=== PATIENT | male | born 1965 | race Caucasian/White ===

== ENCOUNTER → 2020-09-03 14:56 | Outpatient (BNVA) | payer OTHER, SELFPAY | PROVIDERS: PCP Student in an Organized Health Care Education/Training Program; Referring Provider Student in an Organized Health Care Education/Training Program; Visit Provider Nurse Practitioner Family | DX: K21.9 Gastro-esophageal reflux disease without esophagitis (principal); Z79.899 Other long term (current) drug therapy | CPT/HCPCS: 99202 ==

== ENCOUNTER 2020-10-29 11:29 | Emergency (ER) | payer OTHER, SELFPAY ==
[2020-10-29 11:54] VITALS: BP 134/83; PULSE 86; RESP 18; TEMP 36.7; O2SAT 98; BMI 30.7
--- NOTE | 2020-10-29 12:01 | XR_ITS ---
EXAMINATION: XR CHEST CLINICAL INFORMATION: COVID-like symptoms. COMPARISON: Chest radiograph 11/16/2018 TECHNIQUE: Portable PA view of the chest was obtained. FINDINGS: The lungs are clear. There is no airspace consolidation or groundglass opacity. The costophrenic sulci are well-defined. The heart is normal in size. The vascularity is normal. The hilar and mediastinal contours and visualized bony structures are unremarkable. XR/XR chest 1V IMPRESSION: Unremarkable examination.
--- NOTE | 2020-10-29 12:25 | CT_ITS ---
EXAMINATION: CT ABDOMEN AND PELVIS WITHOUT CONTRAST CLINICAL INFORMATION: Left lower quadrant pain COMPARISON: None TECHNIQUE: Multidetector volumetric imaging was performed from the superior aspect of the liver through the pubic symphysis. Sagittal and coronal reformatted images were obtained on the technologist's workstation. This CT examination was performed using dose optimization techniques as appropriate, variously including the following: *Automated exposure control *Adjustment of mA and/or kV according to patient size (this includes techniques or standardized protocols for targeted exams where dose is matched to indication/reason for exam; i.e. extremities or head) *Use of iterative reconstruction technique DLP: 941 mGy-cm FINDINGS: LUNG BASES: There are bilateral lower lobe areas of peripheral groundglass attenuation. Appearance is nonspecific however possible Covid infection should be considered. There is a 5 mm peripheral or subpleural noncalcified left lower lobe nodule adjacent to the diaphragm axial image 20 series 5. LIVER, GALLBLADDER, AND BILIARY TREE: The liver is low in attenuation suggestive of fatty infiltration. No focal liver lesion is seen. The gallbladder is normal. There is no biliary duct dilatation.. PANCREAS: Unremarkable. SPLEEN: Unremarkable. ADRENAL GLANDS: Unremarkable. KIDNEYS AND URETERS: The kidneys are normal in size, shape, and attenuation. No hydronephrosis, hydroureter, or calculi seen. No perinephric stranding. BLADDER: Unremarkable. GASTROINTESTINAL TRACT: The small and large bowel are unremarkable. The appendix is unremarkable. ABDOMINAL WALL: There is a small umbilical hernia containing fat. LYMPH NODES: Normal. VASCULAR: Unremarkable. PELVIC VISCERA: Unremarkable. OSSEOUS STRUCTURES: Unremarkable. CT/CT abdomen pelvis wo con IMPRESSION: Fatty liver. Small umbilical hernia containing fat. Peripheral groundglass attenuation areas seen in both lower lobes. Appearance is nonspecific however Covid infection should be considered.
[2020-10-29 12:46] LABS: Influenza A PCR NEGATIVE (Negative); Influenza B PCR NEGATIVE (Negative); Resp Syncy Virus RNA Qual PCR NEGATIVE (Negative); SARS COV2 PCR INHOUSE POSITIVE (Negative)
--- NOTE | 2020-10-29 13:03 | ED_ITS ---
HPI - General Adult General Chief complaint: Upper Respiratory Symptoms Stated complaint: covid symptoms Time Seen by Provider: 10/29/20 11:49 Source: patient Mode of arrival: ambulatory Limitations: language barrier ([place] Speaking ) History of Present Illness HPI narrative: 55yoM c PMHx of hypertension, hyperlipidemia, GERD, asthma and past surgical history of appendectomy, testicular surgery and prostatectomy presenting to the ED with COVID like symptoms with intermittent headaches, nasal congestion, dry cough, chest congestion, body aches/muscle pains worse with coughing and left lower quadrant abdominal pain for the past few days. Reports that his partner was recently diagnosed with COVID-19. Denies any recent travel or any other sick contacts. Denies any changes in vision, dizziness, nausea/vomiting, chest pain or shortness of breath, dysuria, diarrhea or constipation or any other symptoms complaints or concerns at this time. Related Data Home Medications Medication Instructions Recorded Confirmed fluoxetine 20 mg capsule 20 mg PO DAILY 09/03/20 09/03/20 fluticasone 250 mcg-salmeterol 50 1 inh INHALATION BID 09/03/20 09/03/20 mcg/dose blistr powdr for inhalation zolpidem 10 mg tablet 10 mg PO BEDTIME PRN 09/03/20 09/03/20 Previous Rx's Medication Instructions Recorded omeprazole 20 mg capsule,delayed 20 mg PO BID #60 cap 09/03/20 release simethicone 125 mg capsule 125 mg PO TID-QID PRN #90 cap 09/03/20 acetaminophen [Tylenol] 650 mg PO Q6H PRN #10 tab 10/29/20 azithromycin See Rx Instructions .ROUTE 10/29/20 .COMPLEX #6 tab cyclobenzaprine 10 mg PO TID PRN #10 tab 10/29/20 ibuprofen 800 mg PO Q8H PRN #14 tab 10/29/20 Allergies Allergy/AdvReac Type Severity Reaction Status Date / Time No Known Allergies Allergy Verified 09/03/20 14:59 Review of Systems Review of Systems: Constitutional : + Fever, + Chills, + fatigue, + Malaise ENT/Mouth : No sore throat, No runny nose Eyes: No Discharge Cardiovascular : No Chest Pain, No SOB Respiratory : + Cough, No Sputum, No Wheezing, No Smoke Exposure, No Dyspnea Gastrointestinal : No Nausea, No Vomiting, No Diarrhea, + abdominal pain Genitourinary : No irregular bleeding, No Dysuria, No Urinary Frequency, No Hematuria, No Urinary Incontinence, No Urgency, No Flank Pain, Musculoskeletal : + Myalgia Skin : No rash Neuro : + Headache Yes all other systems are reviewed and are negative [facility] Past Medical History Attestation statement: The following information was validated with the patient. Medical History Asthma GERD (gastroesophageal reflux disease) HTN (hypertension) Hypercholesteremia Surgical History History of ear surgery History of testicular surgery Hx of appendectomy Hx of prostatectomy Family History Family History Father Heart problem Diabetes Asthma Mother HTN (hypertension) Heart problem Maternal Grandfather Stomach cancer Throat cancer Maternal Grandmother Stomach cancer Paternal Uncle Brain cancer Skin cancer Social History Social History Alcohol intake: current Alcohol intake frequency: does not drink Smoking Status: Never smoker Advance Directives: No Advance Directives Information Provided: Yes Physical Exam Vital Signs: Vital Signs: Last Vital Signs Temp 98.1 F 10/29/20 11:54 Pulse 86 10/29/20 11:54 Resp 18 10/29/20 11:54 BP 134/83 10/29/20 11:54 Pulse Ox 98 10/29/20 11:54 Body Mass Index 30.7 vital signs have been reviewed as normal and appeared to be correct. Blood pressure normal. Heart rate normal. Respiration rate normal. Temperature normal. Oxygen saturation normal. Appearance: Alert. Oriented X3. No acute distress. Head: Normal external exam. Normocephalic. Eyes: PERRLA. EOMI. Conjunctiva and sclera normal. Eyelids normal. ENT: Pharynx normal. Uvula midline. Moist mucous membranes. Neck: Normal inspection. Neck supple. FROM. No adenopathy. No meningeal signs. CVS: Normal heart rate and rhythm. Heart sound normal. No murmurs noted. Pulses normal throughout. Respiratory: No respiratory distress. Painless inspiration. Breath sounds normal. No wheezes/rales/rhonchi noted. Chest nontender. No accessory muscle usage noted or decreased air movement noted. Abdomen: Soft and TTP at LLQ abdomen with guarding. No rigidity. negative Bautista sign. Bowel sounds normal in all 4 quadrants. No distention noted. No organomegaly noted. No visible injury noted. No rebound tenderness. Negative Rovsing sign. Negative obturator's sign. Negative psoas sign. Back: No CVA tenderness noted. Full range of motion noted. Skin: Skin warm and dry. Normal skin color. Normal skin turgor. No rashes/lesions/lacerations noted. Extremities: Extremities exhibit normal range of motion. Extremities nontender. Neuro: Oriented X 3. No motor deficit. No sensory deficit. Reflexes normal. Course Course Course Narrative: 55yoM c PMHx of hypertension, hyperlipidemia, GERD, asthma and past surgical history of appendectomy, testicular surgery and prostatectomy presenting to the ED with COVID like symptoms with intermittent headaches, nasal congestion, dry cough, chest congestion, body aches/muscle pains worse with coughing and left lower quadrant abdominal pain for the past few days. - obtained and all within normal limits. UA within normal limits no evidence of UTI. Patient positive for COVID. CT scan of abdomen and pelvis revealed umbilical hernia not incarcerated. Otherwise no other acute processes. Will DC home with symptomatic treatment along with instructions to return if any new or worsening symptoms and referral to General surgery/GI for his umbilical hernia and instructions to return if any new or worsening symptoms. Patient understands agrees the plan. Medical Decision Making Medical Records Medical records reviewed: Yes I reviewed the patient's medical records. Lab Data Lab results reviewed: Yes I reviewed the patient's lab results. Result diagrams: 10/29/20 13:06 10/29/20 13:06 Labs: Lab Results 10/29/20 10/29/20 10/29/20 Range/Units 12:02 12:59 13:06 WBC 5.6 (4.8-10.8) X10*3/uL RBC 4.46 L (4.60-5.80) X10*6/uL Hgb 13.7 L (14.0-18.0) g/dl Hct 41.7 L (42-52) % MCV 93.5 (80-98) fL MCH 30.7 (27.0-33.0) pg MCHC 32.9 (31.0-36.0) g/dl RDW 11.6 (11.0-16.0) % Plt Count 147 L (160-400) X10*3/uL MPV 10.9 (9.4-12.4) fL Immature Gran % (Auto) 0.4 (0.0-0.4) % Neut % (Auto) 69.8 (45-73) % Lymph % (Auto) 20.3 (20-40) % [place] % (Auto) 8.4 (2-11) % Eos % (Auto) 0.7 (0-4) % Baso % (Auto) 0.4 (0-2) % Lymph # (Auto) 1.1 L (1.2-4.9) X10*3/uL [place] # (Auto) 0.5 (0.1-1.2) X10*3/uL Eos # (Auto) 0.0 (0.0-0.4) X10*3/uL Baso # (Auto) 0.0 (0.0-0.2) X10*3/uL Abs Immat Gran (auto) 0.02 (0.00-0.03) X10*3/uL Absolute Neuts (auto) 3.9 (2.0-8.3) X10*3/uL Absolute Nucleated RBC 0.000 (0.0-0.012) X10*3/uL Nucleated RBC % (auto) 0.0 (0.0-0.2) /100WBC Hold Blue Top Sodium (135-145) mmol/L Potassium (3.3-5.1) mmol/l Chloride (96-108) mmol/L Carbon Dioxide (22-29) mmol/L Anion Gap (12-20) BUN (9-16) mg/dL Creatinine (0.5-1.4) mg/dL Estim Creat Clear Calc Estimated GFR Random Glucose (60-115) mg/dL Calcium (8.4-10.2) mg/dL Magnesium (1.6-2.6) mg/dL Total Bilirubin (0.0-1.0) mg/dL Direct Bilirubin (0.0-0.5) mg/dL AST (5-37) U/L ALT (0-40) U/L Alkaline Phosphatase (39-117) U/L Total Protein (6.5-8.0) g/dL Albumin (3.5-5.0) g/dL Urine Color YELLOW Urine Appearance CLEAR Urine pH 6.0 (5.0-8.0) Ur Specific [place] 1.025 (1.005-1.025) Urine Protein NEG (NEG-TRACE) MG/DL Urine Glucose (UA) NEG (NEG) MG/DL Urine Ketones NEG (NEG) MG/DL Urine Blood NEG (NEG) Urine Nitrite NEG (NEG) Ur Leukocyte Esterase NEG (NEG) Coronavirus (PCR) POSITIVE A (Negative) Influenza Type A (PCR) NEGATIVE (Negative) Influenza Type B (PCR) NEGATIVE (Negative) RSV RNA Qual (PCR) NEGATIVE (Negative) 10/29/20 10/29/20 Range/Units 13:06 13:06 WBC (4.8-10.8) X10*3/uL RBC (4.60-5.80) X10*6/uL Hgb (14.0-18.0) g/dl Hct (42-52) % MCV (80-98) fL MCH (27.0-33.0) pg MCHC (31.0-36.0) g/dl RDW (11.0-16.0) % Plt Count (160-400) X10*3/uL MPV (9.4-12.4) fL Immature Gran % (Auto) (0.0-0.4) % Neut % (Auto) (45-73) % Lymph % (Auto) (20-40) % [place] % (Auto) (2-11) % Eos % (Auto) (0-4) % Baso % (Auto) (0-2) % Lymph # (Auto) (1.2-4.9) X10*3/uL [place] # (Auto) (0.1-1.2) X10*3/uL Eos # (Auto) (0.0-0.4) X10*3/uL Baso # (Auto) (0.0-0.2) X10*3/uL Abs Immat Gran (auto) (0.00-0.03) X10*3/uL Absolute Neuts (auto) (2.0-8.3) X10*3/uL Absolute Nucleated RBC (0.0-0.012) X10*3/uL Nucleated RBC % (auto) (0.0-0.2) /100WBC Hold Blue Top SEE NOTE Sodium 141 (135-145) mmol/L Potassium 4.5 (3.3-5.1) mmol/l Chloride 105 (96-108) mmol/L Carbon Dioxide 29 (22-29) mmol/L Anion Gap 12 (12-20) BUN 10 (9-16) mg/dL Creatinine 0.84 (0.5-1.4) mg/dL Estim Creat Clear Calc 121.0 Estimated GFR > 60 Random Glucose 93 (60-115) mg/dL Calcium 8.6 (8.4-10.2) mg/dL Magnesium 1.9 (1.6-2.6) mg/dL Total Bilirubin 0.6 (0.0-1.0) mg/dL Direct Bilirubin 0.2 (0.0-0.5) mg/dL AST 21 (5-37) U/L ALT 25 (0-40) U/L Alkaline Phosphatase 72 (39-117) U/L Total Protein 7.7 (6.5-8.0) g/dL Albumin 4.3 (3.5-5.0) g/dL Urine Color Urine Appearance Urine pH (5.0-8.0) Ur Specific [place] (1.005-1.025) Urine Protein (NEG-TRACE) MG/DL Urine Glucose (UA) (NEG) MG/DL Urine Ketones (NEG) MG/DL Urine Blood (NEG) Urine Nitrite (NEG) Ur Leukocyte Esterase (NEG) Coronavirus (PCR) (Negative) Influenza Type A (PCR) (Negative) Influenza Type B (PCR) (Negative) RSV RNA Qual (PCR) (Negative) Imaging Data Chest x-ray: Attestation: I personally reviewed and interpreted this imaging study as follows: Radiologist's impression: IMPRESSION: Unremarkable examination. CT scan of abdomen and pelvis without contrast.: Attestation: I personally reviewed and interpreted this imaging study as follows: Radiologist's impression: [address] [address] [address] Scan Report Signed Patient: Gilberto HarrisMR#: [id number] : 1965Acct:[id number] Age/Sex: 55 / MADM Date: 10/29/20 Loc: HO.ED Attending Dr: Ordering Physician: CHAYITO BETTENCOURT Date of Service: 10/29/20 Procedure(s): CT abdomen pelvis wo con Accession Number(s): [id number] cc: CHAYITO BETTENCOURT~ EXAMINATION: CT ABDOMEN AND PELVIS WITHOUT CONTRAST CLINICAL INFORMATION: Left lower quadrant pain COMPARISON: None TECHNIQUE: Multidetector volumetric imaging was performed from the superior aspect of the liver through the pubic symphysis. Sagittal and coronal reformatted images were obtained on the technologist's workstation. This CT examination was performed using dose optimization techniques as appropriate, variously including the following: *Automated exposure control *Adjustment of mA and/or kV according to patient size (this includes techniques or standardized protocols for targeted exams where dose is matched to indication/reason for exam; i.e. extremities or head) *Use of iterative reconstruction technique DLP: 941 mGy-cm FINDINGS: LUNG BASES: There are bilateral lower lobe areas of peripheral groundglass attenuation. Appearance is nonspecific however possible Covid infection should be considered. There is a 5 mm peripheral or subpleural noncalcified left lower lobe nodule adjacent to the diaphragm axial image 20 series 5. LIVER, GALLBLADDER, AND BILIARY TREE: The liver is low in attenuation suggestive of fatty infiltration. No focal liver lesion is seen. The gallbladder is normal. There is no biliary duct dilatation.. PANCREAS: Unremarkable. SPLEEN: Unremarkable. ADRENAL GLANDS: Unremarkable. KIDNEYS AND URETERS: The kidneys are normal in size, shape, and attenuation. No hydronephrosis, hydroureter, or calculi seen. No perinephric stranding. BLADDER: Unremarkable. GASTROINTESTINAL TRACT: The small and large bowel are unremarkable. The appendix is unremarkable. ABDOMINAL WALL: There is a small umbilical hernia containing fat. LYMPH NODES: Normal. VASCULAR: Unremarkable. PELVIC VISCERA: Unremarkable. OSSEOUS STRUCTURES: Unremarkable. CT/CT abdomen pelvis wo con IMPRESSION: Fatty liver. Small umbilical hernia containing fat. Peripheral groundglass attenuation areas seen in both lower lobes. Appearance is nonspecific however Covid infection should be considered. Discharge Plan Discharge Clinical Impression: COVID-19, Hernia, umbilical, Fatty liver Patient Disposition: Home, Self-Care Instructions: Umbilical Hernia (ED), Non-Alcoholic Fatty Liver Disease (ED), COVID-19 (Coronavirus Disease 2019) (ED) Prescriptions: New cyclobenzaprine 10 mg tablet 10 mg PO TID PRN (Reason: muscle spasm) Qty: 10 RF: 0 acetaminophen [Tylenol] 325 mg tablet 650 mg PO Q6H PRN (Reason: fever or pain) Qty: 10 RF: 0 azithromycin 250 mg tablet See Rx Instructions .ROUTE .COMPLEX Qty: 6 RF: 0 ibuprofen 800 mg tablet 800 mg PO Q8H PRN (Reason: pain) Qty: 14 RF: 0 No Action fluoxetine [Prozac] 20 mg capsule 20 mg PO DAILY RF: 0 zolpidem [Ambien] 10 mg tablet 10 mg PO BEDTIME PRNRF: 0 fluticasone propion-salmeterol [Advair Diskus] 250-50 mcg/dose blister with device 1 inh inhalation BID RF: 0 omeprazole 20 mg capsule,delayed release(DR/EC) 20 mg PO BID Qty: 60 RF: 3 simethicone [Gas Relief (simethicone)] 125 mg capsule 125 mg PO TID-QID PRN (Reason: abdominal distention) Qty: 90 RF: 3 Referrals: Brigette Moody MD [Primary Care Provider] - 2 days Freddie Ron MD [Physician] - 2 days (For umbilical hernia) Print Language: [place]ish
[2020-10-29 13:11] LABS: Glucose Urine UA NEG (NEG); Leukocyte Esterase Urine NEG (NEG); Nitrite Urine NEG (NEG); Specific Gravity - Urine 1.025 (1.005-1.025); Urine Blood NEG (NEG); Urine Ketones NEG (NEG); Urine Protein NEG (NEG-TRACE)
[2020-10-29 13:12] LABS: Appearance Urine CLEAR; Color Urine YELLOW
[2020-10-29 13:12] LABS: MANUAL DIFF FLAG NO
[2020-10-29 13:17] LABS: Basophils Percent Auto 0.4 % (0-2); Eosinophils Percent Auto 0.7 % (0-4); Hematocrit 41.7 % (42-52); Hemoglobin 13.7 g/dl (14.0-18.0); Imm Gran Abs Auto 0.02 X10*3/uL (0.00-0.03); Imm Gran Pct Auto 0.4 % (0.0-0.4); Lymphocytes Absolute Auto 1.1 X10*3/uL (1.2-4.9); Lymphocytes Percent Auto 20.3 % (20-40); Mean Corpuscular HGB Conc 32.9 g/dl (31.0-36.0); Mean Corpuscular Hemoglobin 30.7 pg (27.0-33.0); Mean Corpuscular Volume 93.5 fL (80-98); Mean Platelet Volume 10.9 fL (9.4-12.4); Monocytes Absolute Auto 0.5 X10*3/uL (0.1-1.2); Monocytes Percent Auto 8.4 % (2-11); Neutrophils Absolute Auto 3.9 X10*3/uL (2.0-8.3); Neutrophils Percent Auto 69.8 % (45-73); Platelet Count 147 X10*3/uL (160-400); Red Blood Count 4.46 X10*6/uL (4.60-5.80); Red Cell Distribution Width 11.6 % (11.0-16.0); White Blood Count 5.6 X10*3/uL (4.8-10.8)
[2020-10-29 13:52] LABS: Alanine Aminotransferase 25 U/L (0-40); Albumin Level 4.3 g/dL (3.5-5.0); Alkaline Phosphatase 72 U/L (39-117); Anion Gap 12 (12-20); Aspartate Amino Transferase 21 U/L (5-37); Bilirubin Direct 0.2 mg/dL (0.0-0.5); Bilirubin Total 0.6 mg/dL (0.0-1.0); Blood Urea Nitrogen 10 mg/dL (9-16); Calcium 8.6 mg/dL (8.4-10.2); Carbon Dioxide 29 mmol/L (22-29); Chloride 105 mmol/L (96-108); Estimated Glomerular Filt Rate > 60; Glucose Random 93 mg/dL (60-115); Magnesium 1.9 mg/dL (1.6-2.6); Potassium 4.5 mmol/l (3.3-5.1); Sodium 141 mmol/L (135-145); Total Protein 7.7 g/dL (6.5-8.0)
== END 2020-10-29 14:50 | disposition home or self-care (01) ==
PROVIDERS: Physician Assistant Medical; Emergency Provider Emergency Medicine; PCP Student in an Organized Health Care Education/Training Program
DX: U07.1 COVID-19 (principal); K42.9 Umbilical hernia without obstruction or gangrene; K76.0 Fatty (change of) liver, not elsewhere classified; R51.9 Headache, unspecified; R05 Cough; M79.10 Myalgia, unspecified site; Z79.899 Other long term (current) drug therapy
CPT/HCPCS: 0241U; 36415; 71045; 74176; 80048; 80076; 81003; 83735; 85025; 99283; 99284

== ENCOUNTER 2020-10-30 12:34 | Outpatient (REF) | payer OTHER, SELFPAY | END 2020-10-30 12:35 | disposition home or self-care (01) | LOC: HO.HAP 12:34 | PROVIDERS: Visit Provider Student in an Organized Health Care Education/Training Program | DX: Z46.1 Encounter for fitting and adjustment of hearing aid (principal) | CPT/HCPCS: 92593 ==

== ENCOUNTER 2020-10-31 08:57 | Outpatient (REF) | payer OTHER, SELFPAY | END 2020-10-31 08:58 | disposition home or self-care (01) | LOC: HO.HAP 08:57 | PROVIDERS: Visit Provider Student in an Organized Health Care Education/Training Program | DX: Z13.89 Encounter for screening for other disorder (principal) ==

== ENCOUNTER 2020-11-12 11:51 | Outpatient (REF) | payer OTHER, SELFPAY | END 2020-11-12 11:52 | disposition home or self-care (01) | LOC: HO.LAB 11:51 | PROVIDERS: Visit Provider Internal Medicine | DX: Z20.822 Contact with and (suspected) exposure to COVID-19 (principal) | CPT/HCPCS: 36415; C9803; U0003 ==

== ENCOUNTER 2020-11-14 12:24 | Outpatient (REF) | payer OTHER, SELFPAY | END 2020-11-14 12:25 | disposition home or self-care (01) | LOC: HO.HAP 12:24 | PROVIDERS: Visit Provider Student in an Organized Health Care Education/Training Program | DX: Z46.1 Encounter for fitting and adjustment of hearing aid (principal); H90.3 Sensorineural hearing loss, bilateral | CPT/HCPCS: 92593; V5266 ==

== ENCOUNTER → 2020-11-19 14:25 | Outpatient (BNVA) | payer OTHER, SELFPAY | PROVIDERS: PCP Student in an Organized Health Care Education/Training Program; Visit Provider Surgery | DX: R10.9 Unspecified abdominal pain (principal); K42.9 Umbilical hernia without obstruction or gangrene | CPT/HCPCS: 99202 ==

== ENCOUNTER 2020-11-24 08:08 | Outpatient (REF) | payer OTHER, SELFPAY ==
--- NOTE | 2020-11-24 08:11 | US_ITS ---
EXAMINATION: US ABDOMEN COMPLETE CLINICAL INFORMATION: Abdominal pain. COMPARISON: CT of the abdomen and pelvis October 2020 and abdominal ultrasound May 2016 TECHNIQUE: Real-time imaging of the abdominal viscera. FINDINGS: PANCREAS: The body of the pancreas is normal-appearing. The head and tail are not well visualized due to bowel gas. ABDOMINAL AORTA: The proximal, mid, and distal segments are normal in caliber. INFERIOR VENA CAVA: Visualized portions are normal. LIVER: Liver echotexture is increased probably representing fatty infiltration. Normal in contour.. No focal hepatic lesion. There is no intrahepatic biliary duct dilatation seen. GALLBLADDER: Normal. The gallbladder is physiologically distended without evidence of stones, sludge, polyps, wall thickening or pericholecystic fluid. COMMON BILE DUCT: Normal in caliber measuring 0.4 cm in diameter. RIGHT KIDNEY: Normal. No hydronephrosis. No renal calculi or focal parenchymal lesions. The kidney measures 11.3 cm in maximum dimension. LEFT KIDNEY: There is a 1.2 cm cyst in the lower pole. No hydronephrosis. No renal calculi or mass lesions. The kidney measures 10.7 cm in maximum dimension. SPLEEN: Normal. The spleen measures 10.3 cm in maximum dimension. FREE FLUID: None. US/US abdomen complete IMPRESSION: Echogenic liver suggestive of fatty infiltration. Small left renal cyst. Limited visualization of the pancreas.
== END 2020-11-24 08:09 | disposition home or self-care (01) ==
LOC: HO.US 08:08
PROVIDERS: Visit Provider Surgery
DX: R10.9 Unspecified abdominal pain (principal)
CPT/HCPCS: 76700

== ENCOUNTER → 2020-12-01 11:16 | Outpatient (BNVA) | payer OTHER, SELFPAY | PROVIDERS: PCP Student in an Organized Health Care Education/Training Program; Visit Provider Surgery | DX: R10.9 Unspecified abdominal pain (principal) | CPT/HCPCS: 99212 ==

== ENCOUNTER → 2021-01-12 09:02 | Outpatient (BNVA) | payer OTHER, SELFPAY | PROVIDERS: PCP Student in an Organized Health Care Education/Training Program; Visit Provider Physician Assistant | DX: Z13.89 Encounter for screening for other disorder (principal) | CPT/HCPCS: Q3014 ==

== ENCOUNTER 2021-02-03 09:44 | Day surgery (SDC) | payer OTHER, SELFPAY ==
[2021-02-03 10:22] VITALS: BP 138/91; PULSE 57; RESP 18; TEMP 36.6; O2SAT 97; BMI 30.1
--- NOTE | 2021-02-03 10:37 | HO.ANESPROP2 ---
[facility] Active Problems Active Problems: All Active Problems (Updated 01/28/21 @ 13:46 by Emeli Perez) COVID-19 (Acute) Postprandial epigastric pain (Acute) Encounter for screening colonoscopy (Acute) Umbilical hernia (Acute) Right sided abdominal pain (Acute) Hx of prostatectomy (Acute) Hx of appendectomy (Acute) History of testicular surgery (Acute) History of ear surgery (Acute) Hypercholesteremia (Acute) HTN (hypertension) (Acute) Asthma (Acute) GERD (gastroesophageal reflux disease) (Acute) Past Medical History Medical History Arthritis Asthma Back pain Depression GERD (gastroesophageal reflux disease) History of traumatic head injury HTN (hypertension) Hypercholesteremia Migraines Right sided abdominal pain Umbilical hernia Family History Family History Father Heart problem Diabetes Asthma Mother HTN (hypertension) Heart problem Maternal Grandfather Stomach cancer Throat cancer Maternal Grandmother Stomach cancer Paternal Uncle Brain cancer Skin cancer Surgical History Surgical History History of cystoscopy History of ear surgery History of testicular surgery Hx of appendectomy Hx of prostatectomy Social History Social History Household Members: None Alcohol intake: current Alcohol intake frequency: holidays/special occasions only Alcohol type: beer Smoking Status: Former smoker Use of substances other than those prescribed or required for medical reasons: No Advance Directives: No Advance Directives Information Provided: Yes Current occupational status: unemployed Meds Allergies Allergy/AdvReac Type Severity Reaction Status Date / Time No Known Allergies Allergy Verified 02/03/21 10:20 Home Medications Medication Instructions Recorded Confirmed Last Taken Type fluoxetine 20 mg capsule 20 mg PO DAILY 09/03/20 01/28/21 Unknown History fluticasone 250 mcg-salmeterol 50 1 inh INHALATION BID 09/03/20 01/28/21 Unknown History mcg/dose blistr powdr for inhalation zolpidem 10 mg tablet 10 mg PO BEDTIME PRN 09/03/20 01/28/21 Unknown History albuterol sulfate 90 mcg/actuation 2 puff PO QID PRN 12/01/20 Unknown History aerosol inhaler ergocalciferol (vitamin D2) 1 cap PO QWEEK 01/28/21 01/28/21 Unknown History gemfibrozil 1 tab PO BID 01/28/21 01/28/21 Unknown History hydroxyzine HCl 1 tab PO BID PRN 01/28/21 01/28/21 Unknown History Exam Exam Date and Time: February 03, 2021 1037 Height,Weight and Vital Signs: Height 5 ft 11 in Weight 97.976 kg Last Vital Signs Temp 97.8 F 02/03/21 10:22 Pulse 57 02/03/21 10:22 Resp 18 02/03/21 10:22 BP 138/91 H 02/03/21 10:22 Pulse Ox 97 02/03/21 10:22
[2021-02-03] MEDS: Lactated Ringers 1,000 ML 50 ML IV (10:40)
--- NOTE | 2021-02-03 11:27 | MHC.SHP ---
Pre-Procedural Eval Section A The patient is an INPATIENT: No Changes since office visit: No Cold of Flu in the past 2 weeks, No New Medical Problems, No Changes in Medication and No Patient answered all questions The History & Physical has been completed within 30 days and I have reviewed it.: Yes Section B Chief Complaint: Screening, GERD Allergies: Allergies Allergy/AdvReac Type Severity Reaction Status Date / Time No Known Allergies Allergy Verified 02/03/21 10:20 Plan I have reviewed the history and physical and performed a pertinent physical examination on my patient. No changes have occurred unless specified.
--- NOTE | 2021-02-03 11:28 | PM.OP ---
Brief Operative Note Date of Service: 02/03/21 Pre-op diagnosis: GERD sx even with water, Increased weight x2 years, Colon cancer screeningo (Hx asthma controlled,GERD) Post-op diagnosis: other (Hiatal hernia, colonic polyps, 2+ Internal Hemorrhoids.) Procedure: EGD-with bx-gastric COLO- with exc polypectomy x2 Implants: NONE Surgeon: Quita Rojas MD Anesthesia: MAC (MD KALLIE) Estimated blood loss (mL): 10 Pathology: other (Gastric; colon polyps) Condition: stable Disposition: PACU
[2021-02-03 12:13] VITALS: BP 107/81; PULSE 63; RESP 18; TEMP 36.3; O2SAT 99
[2021-02-03 12:28] VITALS: BP 134/89; PULSE 65; RESP 18; O2SAT 96
[2021-02-03 12:43] VITALS: BP 129/91; PULSE 59; RESP 18; O2SAT 99
--- NOTE | 2021-02-08 10:10 | W.PM.OPN ---
Operative Note Operative Note Date of Service: 02/03/21 Narrative: Pre-op diagnosis: GERD sx even with water, Increased weight x2 years, Colon cancer screeningo (Hx asthma controlled,GERD) Post-op diagnosis: Hiatal hernia, colonic polyps, 2+ Internal Hemorrhoids. Procedure: EGD-with bx-gastric COLO- with exc polypectomy cold bx forceps Implants: NONE Surgeon: Quita Rojas MD Anesthesia: MAC (MD KALLIE) EGD: Video endoscope was introduced without difficulty. There was a significant amount of soft tissue present in the posterior pharynx. Soft palate was sensitive to light pressure. (easy gag.) Entry to esophagus was easy. Mucosa was normal to the GE junction. Distal to this was a small 3-4cm Hiatal hernia. Stomach: No bile, no erythemal Duodenal Bulb and Duodenum were normal. Random gastric bx were obtained. COLO: DERECK: Prostate was normal Adult slim scope was advanced slowly from rectosigmoid, descending, transverse and ascending colon in to the cecum. Appendiceal orifice, ileocecal valve were seen. PREP: Good. Slow with drawal scope good rotational views. 2 small polyps seen and removed excsionally with cold bx forceps technique. (Area on ileocecal valve was elevated but indistinct--see final path. ARV: clear; 1-2+ Internal hemorrhoids were noted. Estimated blood loss (mL): 10 Pathology: Gastric (Gastritis: H.Pylori --++; Colon polyps--? ileocecal valve(Path-lymphoid aggregate.)-Other was a diminutive Polyp in the ascending colon.--Tubular adenoma Condition: stable Disposition: PACU PLAN 5 year followup colo With gastric bx showing H. pylori--treatment of this will be reviewed with patient on his followup visit.
== END 2021-02-03 13:24 | disposition home or self-care (01) ==
PROVIDERS: PCP Student in an Organized Health Care Education/Training Program; Visit Provider Internal Medicine Gastroenterology
PROC: (CPT 45380; principal; 2021-02-03 10:50)
DX: Z12.11 Encounter for screening for malignant neoplasm of colon (principal); D12.2 Benign neoplasm of ascending colon; K63.5 Polyp of colon; K64.8 Other hemorrhoids; K21.9 Gastro-esophageal reflux disease without esophagitis; K29.50 Unspecified chronic gastritis without bleeding; B96.81 Helicobacter pylori [H. pylori] as the cause of diseases classified elsewhere; K44.9 Diaphragmatic hernia without obstruction or gangrene; I10 Essential (primary) hypertension; J45.909 Unspecified asthma, uncomplicated; R63.5 Abnormal weight gain; Z87.820 Personal history of traumatic brain injury; Z87.891 Personal history of nicotine dependence; Z79.51 Long term (current) use of inhaled steroids; Z79.899 Other long term (current) drug therapy
CPT/HCPCS: 45380; 43239; 88305; 88342

== ENCOUNTER 2021-02-27 10:02 | Outpatient (REF) | payer OTHER, SELFPAY | END 2021-02-27 10:03 | disposition home or self-care (01) | LOC: HO.LAB 10:02 | PROVIDERS: Visit Provider Internal Medicine | DX: Z20.822 Contact with and (suspected) exposure to COVID-19 (principal) | CPT/HCPCS: C9803; U0003; U0005 ==

== ENCOUNTER → 2021-03-02 09:04 | Outpatient (BNVA) | payer OTHER, SELFPAY | PROVIDERS: Visit Provider Physician Assistant | CPT/HCPCS: Q3014 ==

== ENCOUNTER 2021-03-25 08:45 | Outpatient (REF) | payer OTHER, SELFPAY | END 2021-03-25 08:46 | disposition home or self-care (01) | LOC: HO.LAB 08:45 | PROVIDERS: Visit Provider Internal Medicine | DX: Z20.822 Contact with and (suspected) exposure to COVID-19 (principal) | CPT/HCPCS: C9803; U0003; U0005 ==

== ENCOUNTER 2021-03-26 10:54 | Outpatient (REF) | payer OTHER, SELFPAY | END 2021-03-26 10:55 | disposition home or self-care (01) | LOC: HO.LNP 10:54 | PROVIDERS: Visit Provider Physician Assistant | DX: A04.8 Other specified bacterial intestinal infections (principal) | CPT/HCPCS: 87338 ==

== ENCOUNTER → 2021-04-14 07:46 | Outpatient (BNVA) | payer OTHER, SELFPAY | PROVIDERS: Visit Provider Physician Assistant | CPT/HCPCS: Q3014 ==

== ENCOUNTER 2021-04-22 07:50 | Outpatient (REF) | payer OTHER, SELFPAY ==
[2021-04-22 09:30] LABS: MANUAL DIFF FLAG NO
[2021-04-22 09:34] LABS: Basophils Percent Auto 0.7 % (0-2); Eosinophils Absolute Auto 0.1 X10*3/uL (0.0-0.4); Eosinophils Percent Auto 1.4 % (0-4); Hematocrit 41.2 % (42-52); Hemoglobin 13.5 g/dl (14.0-18.0); Imm Gran Abs Auto 0.01 X10*3/uL (0.00-0.03); Imm Gran Pct Auto 0.2 % (0.0-0.4); Lymphocytes Absolute Auto 1.8 X10*3/uL (1.2-4.9); Mean Corpuscular HGB Conc 32.8 g/dl (31.0-36.0); Mean Corpuscular Hemoglobin 31.5 pg (27.0-33.0); Mean Platelet Volume 10.8 fL (9.4-12.4); Monocytes Absolute Auto 0.6 X10*3/uL (0.1-1.2); Monocytes Percent Auto 10.9 % (2-11); Neutrophils Absolute Auto 3.1 X10*3/uL (2.0-8.3); Neutrophils Percent Auto 54.8 % (45-73); Platelet Count 181 X10*3/uL (160-400); Red Blood Count 4.29 X10*6/uL (4.60-5.80); Red Cell Distribution Width 12.2 % (11.0-16.0); White Blood Count 5.6 X10*3/uL (4.8-10.8)
[2021-04-22 10:07] LABS: Estimated Average Glucose 103 mg/dL; Hemoglobin A1c % 5.2 %
[2021-04-22 10:09] LABS: Alanine Aminotransferase 31 U/L (0-40); Albumin Level 4.3 g/dL (3.5-5.0); Alkaline Phosphatase 70 U/L (39-117); Anion Gap 11 (12-20); Aspartate Amino Transferase 27 U/L (5-37); Bilirubin Total 0.4 mg/dL (0.0-1.0); Blood Urea Nitrogen 14 mg/dL (9-16); Calcium 9.5 mg/dL (8.4-10.2); Carbon Dioxide 28 mmol/L (22-29); Chloride 107 mmol/L (96-108); Cholesterol 231 mg/dL; Estimated Glomerular Filt Rate > 60; Glucose Random 114 mg/dL (60-115); HDL Cholesterol 38 mg/dL; LDL Cholesterol Calculated 144 mg/dl; Potassium 4.6 mmol/L (3.3-5.1); Sodium 141 mmol/L (135-145); Total Protein 7.6 g/dL (6.5-8.0); Triglycerides 245 mg/dL
[2021-04-29 00:51] LABS: FIB-ALT 27 U/L (9-46); FIB-Alpha-2-Macroglobulin 146 mg/dL (106-279); FIB-Apolipoprotein A1 145 mg/dL (94-176); FIB-GGT 21 U/L (3-85); FIB-Haptoglobin 152 mg/dL (43-212); FIB-Total Bilirubin 0.5 mg/dL (0.2-1.2); Liver Fibrosis Score 0.12; Liver Fibrosis Stage F0; Nec Inflam Act Grade A0
== END 2021-04-22 07:51 | disposition home or self-care (01) ==
LOC: HO.LAB 07:50
PROVIDERS: PCP Student in an Organized Health Care Education/Training Program; Visit Provider Physician Assistant
DX: R10.11 Right upper quadrant pain (principal); R74.01 Elevation of levels of liver transaminase levels; K76.0 Fatty (change of) liver, not elsewhere classified; B19.20 Unspecified viral hepatitis C without hepatic coma
CPT/HCPCS: 36415; 80053; 80061; 81596; 83036; 85025

== ENCOUNTER 2021-04-30 15:59 | Emergency (ER) | payer OTHER, SELFPAY ==
[2021-04-30 16:02] VITALS: BP 141/92; PULSE 94; RESP 16; TEMP 36.6; O2SAT 96; BMI 67.6
--- NOTE | 2021-04-30 17:58 | ED.GENADULT ---
HPI - General Adult General Chief complaint: General Medical Stated complaint: URINE PAIN Time Seen by Provider: 04/30/21 17:06 Source: patient Mode of arrival: ambulatory Limitations: language barrier ( Fijian speaking only, mechanical engineering coop used) History of Present Illness HPI narrative: 56-year-old male who presents emergency department for evaluation of painful lump in his rectal area. Patient states that the lump developed yesterday and became severely painful today. He states the pain is a constant, sharp to dull pain which is 8/10 at its worst, the pain is worse if he sits on his bottom. The patient states that he has not been constipated and has been having normal bowel movements. He does not have a history of hemorrhoids. He states that he had a colonoscopy approximately 1 month prior and had to cancerous polyps removed. He denied fever, chills, abdominal pain, weakness or fatigue. Related Data Home Medications Medication Instructions Recorded Confirmed fluoxetine 20 mg capsule 20 mg PO DAILY 09/03/20 03/02/21 fluticasone 250 mcg-salmeterol 50 1 inh INHALATION BID 09/03/20 03/02/21 mcg/dose blistr powdr for inhalation zolpidem 10 mg tablet 10 mg PO BEDTIME PRN 09/03/20 03/02/21 albuterol sulfate 90 mcg/actuation 2 puff PO QID PRN 12/01/20 03/02/21 aerosol inhaler ergocalciferol (vitamin D2) 1 cap PO QWEEK 01/28/21 03/02/21 gemfibrozil 1 tab PO BID 01/28/21 03/02/21 hydroxyzine HCl 1 tab PO BID PRN 01/28/21 03/02/21 Previous Rx's Medication Instructions Recorded simethicone 125 mg capsule 125 mg PO TID-QID PRN #90 cap 09/03/20 acetaminophen [Tylenol] 650 mg PO Q6H PRN #10 tab 10/29/20 cyclobenzaprine 10 mg PO TID PRN #10 tab 10/29/20 ibuprofen 800 mg PO Q8H PRN #14 tab 10/29/20 Allergies Allergy/AdvReac Type Severity Reaction Status Date / Time No Known Allergies Allergy Verified 04/14/21 07:46 Review of Systems Review of Systems: Yes all other systems are reviewed and are negative Neurologic: Reports Abnormal speech present PMFSH Past Medical History [facility] Narrative: Social history the patient denies tobacco use, he states that he rarely drinks alcohol, he denies drug use. Medical History Arthritis Asthma Back pain Depression GERD (gastroesophageal reflux disease) History of traumatic head injury HTN (hypertension) Hypercholesteremia Migraines Right sided abdominal pain Umbilical hernia Surgical History History of cystoscopy History of ear surgery History of testicular surgery Hx of appendectomy Hx of prostatectomy Family History Family History Father Heart problem Diabetes Asthma Mother HTN (hypertension) Heart problem Maternal Grandfather Stomach cancer Throat cancer Maternal Grandmother Stomach cancer Paternal Uncle Brain cancer Skin cancer Social History Social History Household Members: None Alcohol intake: current Alcohol intake frequency: holidays/special occasions only Alcohol type: beer Advance Directives: No Advance Directives Information Provided: Yes Current occupational status: unemployed Physical Exam Vital Signs: Vital Signs: Last Vital Signs Temp 97.9 F 04/30/21 16:02 Pulse 94 04/30/21 16:02 Resp 16 04/30/21 16:02 BP 141/92 H 04/30/21 16:02 Pulse Ox 96 04/30/21 16:02 Body Mass Index 67.6 Const: General: cooperative and healthy appearing Orientation/consciousness: oriented to person and oriented to place Limitations: no limitations HENMT: Head: Yes normal to inspection, Yes normocephalic and Yes atraumatic Ears: external ears normal General nose exam: Normal external nose present Face and sinus: Yes normal facial exam Mouth: Normal oral and palatal mucosa present Throat: Yes posterior oropharynx normal Eyes: Periorbital: periorbital findings normal Eyelids: Yes eyelids normal Conjunctivae: conjunctivae normal Sclerae: sclerae normal Corneas: corneas normal Pupils: Equal, round and reactive pupils present Direct Ophthalmoscopy: normal light reflex Neck: Neck: Yes full ROM, Yes no lymphadenopathy, Yes no meningeal signs, Yes trachea midline and Yes supple Chest: Chest palpation & inspection: normal inspection of the chest and normal palpation of entire chest wall Resp: Effort & Inspection: normal respiratory effort and able to speak in complete sentences Auscultation: clear to auscultation bilaterally Cardio: Rate: regular rate Rhythm: regular rhythm Heart sounds: S1 normal heart sound present, S2 normal heart sound present and no murmurs GI: Other: The patient has a 2 cm external hemorrhoid at the 3 o'clockl position, the hemorrhoid is hard and appears to be thrombosed, the patient has significant pain and tenderness with palpation Of this hemorrhoid. Inspection: Yes normal to inspection Palpation (GI): Soft to palpation, nontender, no guarding, not rigid and No hepatosplenomegaly present : General: Yes no CVA tenderness Back/Spine/Pelvis: Back: no CVA tenderness Cervical Spine: normal cervical lordosis Thoracic/Lumbar Spine: thoracic and lumbar spine normal to inspection Skin: Lesions: no lesions Rashes: no rashes Wounds: no wounds Neuro: General: oriented to person, oriented to place and no meningeal signs Cranial nerves: Yes Equal, round and reactive pupils present Speech: Abnormal speech present Motor exam (neuro): 5/5 motor strength present throughout Extrem: General: Yes normal to inspection and Yes full ROM Psych: Appearance: well kempt Mental Status: mental status grossly normal Speech and movement: Normal speech and movement present Affect: normal affect Attitude: cooperative Thought process: Normal thought process present Thought content: Normal thought content present Course Course Course Narrative: 56-year-old male who presents to the emergency department for evaluation of a painful lump in his rectal area. Physical examination is consistent with a thrombosed hemorrhoid. I discussed the thrombectomy procedure with the patient and he consented to the procedure. hemorrhoid thrombectomy was done at bedside, the patient will be discharged home. He was advised to sit in a warm bathtub for 15 minutes 3 to 4 times a day for the next 2 days, he will be treated with preparation H hemorrhoid cream and preparation H suppositories twice a day and after each bowel movement. He was advised to wear an OB Pad over his rectal area since the may be bleeding over the next several days. Procedures Procedure Narrative Procedure Narrative: rectal pain with thrombosed external hemorrhoid, hemorrhoid thrombectomy procedure: I did discuss the procedure with the patient using a mechanical engineering coop and he did give me informed verbal consent to proceed. The hemorrhoid was prepped with Betadine and then anesthetized with 10 cc of lidocaine 2% with epinephrine. Using a 11 scapel and made a linear incision over the thrombosed hemorrhoid and 2 large blood clots removed. Using hemostats the hemorrhoid was probed and there were no other clots found inside the hemorrhoid. Gauze and an OB pad was placed over the hemorrhoid to help with any bleeding. The patient tolerated the procedure well. Discharge Plan Discharge Clinical Impression: External hemorrhoid, thrombosed, Pain, rectal Patient Disposition: Home, Self-Care Instructions: Hemorrhoids (ED), Thrombosed Hemorrhoid (ED) Additional Instructions: You had a thrombosed hemorrhoid which was anesthetized and incised here in the emergency department, 2 large blood clots removed from the hemorrhoid. Wear an Ob pad over the hemorrhoid for the next 1-2 days to help with any bleeding. Sit in a hot bath time for 15 minutes and get warm water on the hemorrhoid area to help the healing process. Use preparation H suppositories twice a day and after each bowel movement. Apply preparation H cream twice a day to the hemorrhoid and after each bowel movement. Take Metamucil 1 tsp in 8 oz of water twice a day for 2 weeks to help prevent constipation. 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 Follow-up with your doctor in 2 days. Please return to the emergency department if your symptoms get worse or if you develop any symptoms that are concerning to you. Prescriptions: No Action hydroxyzine HCl 50 mg tablet 1 tab PO BID PRN (Reason: anxiety) RF: 0 gemfibrozil 600 mg tablet 1 tab PO BID RF: 0 ergocalciferol (vitamin D2) 1,250 mcg (50,000 unit) capsule 1 cap PO QWEEK RF: 0 cyclobenzaprine 10 mg tablet 10 mg PO TID PRN (Reason: muscle spasm) Qty: 10 RF: 0 acetaminophen [Tylenol] 325 mg tablet 650 mg PO Q6H PRN (Reason: fever or pain) Qty: 10 RF: 0 ibuprofen 800 mg tablet 800 mg PO Q8H PRN (Reason: pain) Qty: 14 RF: 0 Hold Instructions: Resume on 02/10/21. polypectomy x2 fluoxetine [Prozac] 20 mg capsule 20 mg PO DAILY RF: 0 zolpidem [Ambien] 10 mg tablet 10 mg PO BEDTIME PRN (Reason: Sleep) RF: 0 fluticasone propion-salmeterol [Advair Diskus] 250-50 mcg/dose blister with device 1 inh inhalation BID RF: 0 simethicone [Gas Relief (simethicone)] 125 mg capsule 125 mg PO TID-QID PRN (Reason: abdominal distention) Qty: 90 RF: 3 albuterol sulfate 90 mcg/actuation HFA aerosol inhaler 2 puff PO QID PRN (Reason: Wheezing) RF: 0
[2021-04-30 18:34] VITALS: BP 136/84; PULSE 89; RESP 16; TEMP 36.7; O2SAT 97
== END 2021-04-30 18:36 | disposition home or self-care (01) ==
PROVIDERS: Emergency Provider Emergency Medicine Emergency Medical Services; PCP Student in an Organized Health Care Education/Training Program
DX: K64.5 Perianal venous thrombosis (principal); I10 Essential (primary) hypertension; J45.909 Unspecified asthma, uncomplicated; Z79.899 Other long term (current) drug therapy
CPT/HCPCS: 46083; 99283; 99284

== ENCOUNTER 2021-05-06 14:27 | Outpatient (REF) | payer OTHER, SELFPAY | END 2021-05-06 14:28 | disposition home or self-care (01) | LOC: HO.HAP 14:27 | PROVIDERS: Visit Provider Student in an Organized Health Care Education/Training Program | DX: Z46.1 Encounter for fitting and adjustment of hearing aid (principal); H90.6 Mixed conductive and sensorineural hearing loss, bilateral | CPT/HCPCS: 92593 ==

== ENCOUNTER → 2021-06-16 08:25 | Outpatient (BNVA) | payer OTHER, SELFPAY | PROVIDERS: Visit Provider Physician Assistant | DX: K76.0 Fatty (change of) liver, not elsewhere classified (principal); K21.9 Gastro-esophageal reflux disease without esophagitis | CPT/HCPCS: Q3014 ==

== ENCOUNTER 2021-10-05 07:26 | Outpatient (REF) | payer OTHER, SELFPAY | END 2021-10-05 07:27 | disposition home or self-care (01) | LOC: HO.LAB 07:26 | PROVIDERS: PCP Student in an Organized Health Care Education/Training Program; Visit Provider Internal Medicine | DX: Z20.822 Contact with and (suspected) exposure to COVID-19 (principal) | CPT/HCPCS: C9803; U0003; U0005 ==

== ENCOUNTER 2021-10-26 11:14 | Outpatient (REF) | payer OTHER, SELFPAY ==
[2021-10-26 12:57] LABS: COVID-19 Test Negative (Negative)
== END 2021-10-26 11:15 | disposition home or self-care (01) ==
LOC: HO.LAB 11:14
PROVIDERS: Visit Provider Internal Medicine
DX: Z20.822 Contact with and (suspected) exposure to COVID-19 (principal)
CPT/HCPCS: 36415; 87635; C9803

== ENCOUNTER 2023-02-21 12:42 | Emergency (ER) | payer OTHER, SELFPAY ==
--- NOTE | ~2023-02-21 | XR_ITS ---
EXAMINATION: XR KNEE, RIGHT XR KNEE, LEFT CLINICAL INFORMATION: Fall, trauma, bilateral knee pain. COMPARISON: Radiographs left knee 09/08/2010 TECHNIQUE: Each knee is imaged in 4 views. There are a total of 8 views. FINDINGS: Right: No fracture, dislocation, or suprapatellar effusion. Hoffa's fat pad appears normal. No joint narrowing or erosive change or chondrocalcinosis. There is mild spurring at the quadriceps insertion patella. Left: No fracture or dislocation. Hoffa's fat pad appears normal. There is small suprapatellar effusion. Spurring at the quadriceps insertion patella is similar to contralateral right side. No joint narrowing or erosive change or chondrocalcinosis. XR/XR knee RT 4V IMPRESSION: -No fracture, dislocation, or joint narrowing. -Left: Small left suprapatellar effusion. -Bilateral: Spurring at quadriceps insertion bilateral patella, greater on right.
--- NOTE | ~2023-02-21 | XR_ITS ---
EXAMINATION: XR KNEE, RIGHT XR KNEE, LEFT CLINICAL INFORMATION: Fall, trauma, bilateral knee pain. COMPARISON: Radiographs left knee 09/08/2010 TECHNIQUE: Each knee is imaged in 4 views. There are a total of 8 views. FINDINGS: Right: No fracture, dislocation, or suprapatellar effusion. Hoffa's fat pad appears normal. No joint narrowing or erosive change or chondrocalcinosis. There is mild spurring at the quadriceps insertion patella. Left: No fracture or dislocation. Hoffa's fat pad appears normal. There is small suprapatellar effusion. Spurring at the quadriceps insertion patella is similar to contralateral right side. No joint narrowing or erosive change or chondrocalcinosis. XR/XR knee LT 4V IMPRESSION: -No fracture, dislocation, or joint narrowing. -Left: Small left suprapatellar effusion. -Bilateral: Spurring at quadriceps insertion bilateral patella, greater on right.
[2023-02-21 13:09] VITALS: BP 133/86; PULSE 89; RESP 17; TEMP 36.6; O2SAT 98; BMI 35.2
--- NOTE | 2023-02-21 13:12 | ED_ITS ---
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 Patient states that a month ago he slipped and both of his knees have been bothering him but his left more than his right. Patient denies hitting his head with the incident. Patient denies any loss of consciousness with the incident. Patient denies any dizziness, lightheadedness, abdominal pain, nausea, vomiting, fever, chills, blurry vision, double vision, loss of vision, chest pain, difficulty breathing, shortness of breath, back pain, night sweats, pain with urination, increased urinary frequency, increased urinary urgency, blood in his urine or stool, syncope or a near syncopal episode, bowel incontinence, bladder incontinence, bowel retention, bladder retention, or any other complaints at this time. <EDWARD Dickerson - Last Filed: 02/21/23 15:58> MD complaint: knee injury <EDWARD Dickerson Last Filed: 02/21/23 15:58> Onset (ago): month(s) (1) <EDWARD Dickerson Last Filed: 02/21/23 15:58> Severity: mild <EDWARD Dickerson Last Filed: 02/21/23 15:58> Severity scale (1-10): 3 <EDWARD Dickerson Last Filed: 02/21/23 15:58> Other symptoms: none <EDWARD Dickerson - Last Filed: 02/21/23 15:58> Related Data Home Medications: Home Medications Medication Instructions Recorded Confirmed fluoxetine 20 mg capsule (Prozac) 20 mg PO DAILY 09/03/20 03/02/21 fluticasone 250 mcg-salmeterol 50 1 inh inhalation BID 09/03/20 03/02/21 mcg/dose blistr powdr for inhalation (Advair Diskus) zolpidem 10 mg tablet (Ambien) 10 mg PO BEDTIME PRN Sleep 09/03/20 03/02/21 albuterol sulfate 90 mcg/actuation 2 puff PO QID PRN Wheezing 12/01/20 03/02/21 aerosol inhaler ergocalciferol (vitamin D2) 1,250 1 cap PO QWEEK 01/28/21 03/02/21 mcg (50,000 unit) capsule gemfibrozil 600 mg tablet 1 tab PO BID 01/28/21 03/02/21 hydroxyzine HCl 50 mg tablet 1 tab PO BID PRN anxiety 01/28/21 03/02/21 albuterol sulfate 2.5 mg/3 mL mg inhalation TID PRN 06/16/21 (0.083 %) solution for nebulization clotrimazole 1 % topical solution ml otic (ears) 06/16/21 Previous Rx's Medication Instructions Recorded simethicone 125 mg capsule (Gas 125 mg PO TID-QID PRN abdominal 09/03/20 Relief (simethicone)) distention #90 caps acetaminophen 325 mg tablet 650 mg PO Q6H PRN fever or pain 10/29/20 (Tylenol) #10 tabs cyclobenzaprine 10 mg tablet 10 mg PO TID PRN muscle spasm #10 10/29/20 tabs ibuprofen 800 mg tablet 800 mg PO Q8H PRN pain #14 tabs 10/29/20 cyclobenzaprine 5 mg tablet 5 mg PO TID PRN knee pain 7 days 02/21/23 #21 tabs prednisone 20 mg tablet 20 mg PO DAILY 7 days #7 tabs 02/21/23 <EDWARD Dumont - Last Filed: 02/21/23 13:13> Allergies/Adverse Reactions: Allergies Allergy/AdvReac Type Severity Reaction Status Date / Time No Known Allergies Allergy Verified 06/16/21 08:26 <Angelita Donnelly [place] - Last Filed: 02/21/23 13:13> Review of Systems Constitutional: Constitutional: Reports no additional constitutional complaints, Denies chills, Denies fever(s) and Denies night sweats <EDWARD Dickerson Last Filed: 02/21/23 15:58> Eyes: Eyes: Reports no additional eye complaints, Denies blurry vision, Denies change in vision, Denies diplopia, Denies eye discharge, Denies loss of vision and Denies eye pain <EDWARD Dickerson - Last Filed: 02/21/23 15:58> ENT: Denies dizziness <EDWARD Dickerson - Last Filed: 02/21/23 15:58> Cardiovascular: Cardiovascular: Reports no additional cardiovascular complaints, Denies chest pain, Denies lightheadedness, Denies Loss of Consciousness and Denies dyspnea <EDWARD Dickerson Last Filed: 02/21/23 15:58> Respiratory: Respiratory: Reports no additional respiratory complaints and Denies dyspnea <EDWARD Dickerson - Last Filed: 02/21/23 15:58> Gastrointestinal: Gastrointestinal: Reports no additional gastrointestinal complaints, Denies abdominal pain, Denies melena, Denies hematochezia, Denies change in bowel habits and Denies change in stool character <EDWARD Dickerson - Last Filed: 02/21/23 15:58> Genitourinary: Genitourinary: Reports no additional male genitourinary complaints, Denies hematuria, Denies oliguria, Denies difficulty urinating, Denies dysuria, Denies urinary frequency, Denies urinary hesitancy, Denies urinary incontinence and Denies urinary urgency <EDWARD Dickerson Last Filed: 02/21/23 15:58> Musculoskeletal: Musculoskeletal: Reports no additional musculoskeletal complaints, Denies numbness and Denies tingling <EDWARD Dickerson - Last Filed: 02/21/23 15:58> Comments: bilateral knee pain <EDWARD Dickerson Last Filed: 02/21/23 15:58> Neurologic: Denies dizziness, Denies loss of vision, Denies numbness and Denies tingling <EDWARD Dickerson - Last Filed: 02/21/23 15:58> Psychiatric: Psychiatric: Reports no additional psychiatric complaints <EDWARD Dickerson - Last Filed: 02/21/23 15:58> Endocrine: Endocrine: Reports no additional endocrine complaints <EDWARD Dickerson - Last Filed: 02/21/23 15:58> Hematologic/Lymphatic: Hematologic/Lymphatic: Reports no additional hematologic/lymphatic complaints <EDWARD Dickerson - Last Filed: 02/21/23 15:58> Allergic/Immunologic: Allergic/Immunologic: Reports no additional allergic/immunologic complaints <EDWARD Dickerson - Last Filed: 02/21/23 15:58> [facility] Past Medical History Attestation statement: The following information was validated with the patient. <EDWARD Dickerson - Last Filed: 02/21/23 15:58> Source: old records reviewed and nursing notes reviewed <EDWARD Dickerson - Last Filed: 02/21/23 15:58> Medical History: Medical History Arthritis Asthma Back pain Depression GERD (gastroesophageal reflux disease) History of traumatic head injury HTN (hypertension) Hypercholesteremia Migraines Right sided abdominal pain Umbilical hernia <EDWARD Dumont - Last Filed: 02/21/23 13:13> Surgical History: Surgical History History of cystoscopy History of ear surgery History of testicular surgery Hx of appendectomy Hx of prostatectomy <EDWARD Dumont - Last Filed: 02/21/23 13:13> Family History Family History: Family History Father Heart problem Diabetes Asthma Mother HTN (hypertension) Heart problem Maternal Grandfather Stomach cancer Throat cancer Maternal Grandmother Stomach cancer Paternal Uncle Brain cancer Skin cancer <EDWARD Dumont - Last Filed: 02/21/23 13:13> Social History Social History: Social History Household Members: None Alcohol intake: current Alcohol intake frequency: holidays/special occasions only Alcohol type: beer Advance Directives: No Advance Directives Information Provided: No Current occupational status: unemployed <EDWARD Dumont - Last Filed: 02/21/23 13:13> Physical Exam Vital Signs: Vital Signs: Last Vital Signs Temp 98 F 02/21/23 13:09 Pulse 89 02/21/23 13:09 Resp 17 02/21/23 13:09 BP 133/86 02/21/23 13:09 Pulse Ox 98 02/21/23 13:09 O2 Del Method Room Air 02/21/23 13:09 BMI result Body Mass Index 35.2 <EDWARD Dumont - Last Filed: 02/21/23 13:13> Vital Signs: Last Vital Signs Temp 98 F 02/21/23 13:09 Pulse 89 02/21/23 13:09 Resp 17 02/21/23 13:09 BP 133/86 02/21/23 13:09 Pulse Ox 98 02/21/23 13:09 O2 Del Method Room Air 02/21/23 13:09 BMI result Body Mass Index 35.2 <EDWARD Dickerson - Last Filed: 02/21/23 15:58> Const: General: cooperative, no acute distress, alert and awake <EDWARD Dickerson - Last Filed: 02/21/23 15:58> Nutritional Appearance: well nourished <EDWARD Dickerson - Last Filed: 02/21/23 15:58> Orientation/consciousness: patient oriented x3 <EDWARD Dickerson - Last Filed: 02/21/23 15:58> Limitations: no limitations <EDWARD Dickerson Last Filed: 02/21/23 15:58> HEENT: Head: Yes normal to inspection and Yes atraumatic <EDWARD Dickerson - Last Filed: 02/21/23 15:58> Ears: hearing grossly normal bilaterally and external ears normal <EDWARD Dickerson - Last Filed: 02/21/23 15:58> General nose exam: Normal external nose present, no nasal discharge noted and no epistaxis <EDWARD Dicekrson - Last Filed: 02/21/23 15:58> Face and sinus: Yes normal facial exam, No abrasion and No laceration <EDWARD Dickerson - Last Filed: 02/21/23 15:58> Mouth: Normal oral and palatal mucosa present, no drooling and no muffled voice <Lupe Low PA - Last Filed: 02/21/23 15:58> Eyes: General: appearance normal, both eyes and all related structures <Lupe Low PA - Last Filed: 02/21/23 15:58> Periorbital: periorbital findings normal <Lupe Low PA - Last Filed: 02/21/23 15:58> Eyelids: Yes eyelids normal <Lupe Low PA - Last Filed: 02/21/23 15:58> Conjunctivae: conjunctivae normal <Lupe Low PA - Last Filed: 02/21/23 15:58> Pupils: Equal, round and reactive pupils present <Lupe Low PA - Last Filed: 02/21/23 15:58> EOM: EOMs intact bilaterally <Lupe Low PA - Last Filed: 02/21/23 15:58> Neck: Neck: Yes normal visual inspection, Yes full ROM and Yes no lymphadenopathy <Lupe Alvarengashu PA - Last Filed: 02/21/23 15:58> Chest: Chest palpation & inspection: normal inspection of the chest <Lupe Alvarengashu PA - Last Filed: 02/21/23 15:58> Resp: Effort & Inspection: normal respiratory effort and able to speak in complete sentences <Lupe Alvarengashu PA - Last Filed: 02/21/23 15:58> Auscultation: clear to auscultation bilaterally <Lupe Alvarengashu PA - Last Filed: 02/21/23 15:58> GI: Inspection: Yes normal to inspection <Lupe Low PA - Last Filed: 02/21/23 15:58> Neuro: General: patient oriented x3 and moves all extremities <Lupe Alvarengashu PA - Last Filed: 02/21/23 15:58> Cranial nerves: Yes Equal, round and reactive pupils present <Lupe Alvarengashu PA - Last Filed: 02/21/23 15:58> Cognition (Neuro): normal cognition <Lupe Alvarengashu PA - Last Filed: 02/21/23 15:58> Motor exam (neuro): 5/5 motor strength present throughout <Lupe Alvarengashu PA - Last Filed: 02/21/23 15:58> Sensory Exam: Normal double simultaneous stimulation for sensation <Lupe LowEDWARD ireland - Last Filed: 02/21/23 15:58> Coordination: [id number] test normal <EDWARD Dickerson - Last Filed: 02/21/23 15:58> Extrem: General: Yes normal to inspection, Yes full ROM and Yes capillary refill normal <EDWADR Dickerson - Last Filed: 02/21/23 15:58> Psych: Appearance: grossly normal <Lupejin AlvarengaEDWARD ire[place] - Last Filed: 02/21/23 15:58> Mental Status: mental status grossly normal <EDWARD Dickerson - Last Filed: 02/21/23 15:58> Affect: normal affect <EDWARD Dickerson - Last Filed: 02/21/23 15:58> Attitude: cooperative <EDWARD Dickerson - Last Filed: 02/21/23 15:58> Thought process: Normal thought process present <EDWARD Dickerson - Last Filed: 02/21/23 15:58> Thought content: Normal thought content present <EDWARD Dickerson - Last Filed: 02/21/23 15:58> Insight: Good insight present (Psych) <EDWARD Dickerson - Last Filed: 02/21/23 15:58> Course Course Course Narrative: RME - 57 y/o Micronesian speaking male presents to the ER for evaluation of bilateral knee pain, L>R after slipping about 1 month ago. Ambulatory into triage. Plan: x-ray knees, refer to ortho <EDWARD Dumont - Last Filed: 02/21/23 13:13> Medical Decision Making Medical Decision Making MDM Narrative: Patient is a 57 year old assigned male at with a history of HTN presenting to the emergency department today with knee pain. Patient's physical exam was unremarkable. Patient's knee x-rays showed no acute process. I explained my physical exam findings as well as all test results to the patient. I answered all questions asked by the patient. I stressed the importance of the patient taking his medication as prescribed. I stressed the importance of the patient following up with his primary care provider and an orthopedic provider. I stressed the importance of the patient returning to the emergency department immediately if his symptoms were to worsen or if he were to develop any dizziness, shortness of breath, difficulty breathing, chest pain, blurry vision, loss of vision, nausea, vomiting, abdominal pain, fever, chills, back pain, or any other complaints. Patient verbalized agreement and understanding with this treatment plan and discharge. <EDWARD Dickerson - Last Filed: 02/21/23 15:58> Differential Diagnosis Differential Diagnoses: The differential diagnosis associated with the presentation includes <EDWARD Dickerson Last Filed: 02/21/23 15:58> knee pain <EDWARD Dickerson - Last Filed: 02/21/23 15:58> Independent Interpretation I performed an independent interpretation of an: Plain X-Ray <EDWARD Dickerson Last Filed: 02/21/23 15:58> Interpretation: My interpretation is in agreement with the radiologist's impression of these imaging studies. EXAMINATION: XR KNEE, RIGHT XR KNEE, LEFT CLINICAL INFORMATION: Fall, trauma, bilateral knee pain.? COMPARISON: Radiographs left knee 09/08/2010? TECHNIQUE: Each knee is imaged in 4 views. There are a total of 8 views.? FINDINGS: Right: No fracture, dislocation, or suprapatellar effusion. Hoffa's fat pad appears normal. No joint narrowing or erosive change or chondrocalcinosis. There is mild spurring at the quadriceps insertion patella. Left: No fracture or dislocation. Hoffa's fat pad appears normal. There is small suprapatellar effusion. Spurring at the quadriceps insertion patella is similar to contralateral right side. No joint narrowing or erosive change or chondrocalcinosis. XR/XR knee LT 4V IMPRESSION: -No fracture, dislocation, or joint narrowing. -Left: Small left suprapatellar effusion. -Bilateral: Spurring at quadriceps insertion bilateral patella, greater on right. Dictated By: Chapincito Hercules MD Signed By: Electronically signed by Chapincito Hercules MD 02/21/23 1528 <EDWARD Dickerson - Last Filed: 02/21/23 15:58> Discharge Plan Discharge Clinical Impression: Acute knee pain <EDWARD Dumont - Last Filed: 02/21/23 13:13> Patient Disposition: Home, Self-Care <EDWARD Dumont - Last Filed: 02/21/23 13:13> Instructions: Knee Pain (ED) <EDWARD Dumont - Last Filed: 02/21/23 13:13> Additional Instructions: Follow up with your primary care provider and an orthopedic provider. Return to the emergency department immediately if your symptoms worsen or if you develop any dizziness, shortness of breath, difficulty breathing, chest pain, blurry vision, loss of vision, nausea, vomiting, abdominal pain, fever, chills, back pain, or any other complaints. <EDWARD Dumont - Last Filed: 02/21/23 13:13> Prescriptions: New prednisone 20 mg tablet 20 mg PO DAILY 7 Days Qty: 7 0RF cyclobenzaprine 5 mg tablet 5 mg PO TID PRN (Reason: knee pain) 7 Days Qty: 21 0RF No Action hydroxyzine HCl 50 mg tablet 1 tab PO BID PRN (Reason: anxiety) gemfibrozil 600 mg tablet 1 tab PO BID ergocalciferol (vitamin D2) 1,250 mcg (50,000 unit) capsule 1 cap PO QWEEK cyclobenzaprine 10 mg tablet 10 mg PO TID PRN (Reason: muscle spasm) Qty: 10 0RF acetaminophen [Tylenol] 325 mg tablet 650 mg PO Q6H PRN (Reason: fever or pain) Qty: 10 0RF ibuprofen 800 mg tablet 800 mg PO Q8H PRN (Reason: pain) Qty: 14 0RF Hold Instructions: Resume on 02/10/21. polypectomy x2 fluoxetine [Prozac] 20 mg capsule 20 mg PO DAILY zolpidem [Ambien] 10 mg tablet 10 mg PO BEDTIME PRN (Reason: Sleep) fluticasone propion-salmeterol [Advair Diskus] 250-50 mcg/dose blister with device 1 inh inhalation BID simethicone [Gas Relief (simethicone)] 125 mg capsule 125 mg PO TID-QID PRN (Reason: abdominal distention) Qty: 90 3RF albuterol sulfate 90 mcg/actuation HFA aerosol inhaler 2 puff PO QID PRN (Reason: Wheezing) albuterol sulfate 2.5 mg /3 mL (0.083 %) solution for nebulization inhalation TID PRN clotrimazole 1 % solution otic (ears) <EDWARD Dumont - Last Filed: 02/21/23 13:13> Referrals: [facility] [place] [facility]] (Call to establish and follow up with a primary care provider. If you already have a primary care provider, please follow up with them. Llame para establecer y hacer un seguimiento con un proveedor de atenci?n primaria. Si ya tiene un proveedor de atenci?n primaria, vikram un seguimiento con ?l.) [facility] [[facility]] (Call to establish and follow up with a primary care provider. If you already have a primary care provider, please follow up with them. Llame para establecer y hacer un seguimiento con un proveedor de atenci?n primaria. Si ya tiene un proveedor de atenci?n primaria, vikram un seguimiento con ?l.) [facility] [[facility]] (Call to establish and follow up with a primary care provider. If you already have a primary care provider, please follow up with them. Llame para establecer y hacer un seguimiento con un proveedor de atenci?n primaria. Si ya tiene un proveedor de atenci?n primaria, vikram un seguimiento con ?l.) [facility] [place] [Provider Group] (Call to establish and follow up with an orthopedic provider. Llame para establecer y hacer un seguimiento con un proveedor ortop?dico.) <EDWARD Dumont - Last Filed: 02/21/23 13:13> Print Language: Danish <EDWARD Dumont - Last Filed: 02/21/23 13:13>
== END 2023-02-21 16:09 | disposition home or self-care (01) ==
PROVIDERS: Emergency Provider Emergency Medicine
DX: S89.92XA Unspecified injury of left lower leg, initial encounter (principal); S89.91XA Unspecified injury of right lower leg, initial encounter; I10 Essential (primary) hypertension; M25.562 Pain in left knee; M25.561 Pain in right knee; W01.0XXA Fall on same level from slipping, tripping and stumbling without subsequent striking against object, initial encounter; Y93.9 Activity, unspecified; Y92.9 Unspecified place or not applicable; Y99.9 Unspecified external cause status; Z79.899 Other long term (current) drug therapy
CPT/HCPCS: 73564; 99282; 99283

== ENCOUNTER 2023-10-05 08:03 | Outpatient (AMB) | payer OTHER, SELFPAY ==
--- NOTE | 2023-10-05 08:08 | MHC.OFFVIS ---
Intake Vital Signs 10/05/23 08:10 Height 5 ft 8 in Weight 227 lb 1.218 oz BMI 34.5 BP 151/91 H Blood Pressure Location Lt brachial Position Sitting Pulse 70 Intake Visit Reasons: follow up Intake Note: Gilberto presents in the office as a routine follow up. CC: He states that he is having pains in the RUQ. He came to ER the other day but it was super full and end up leaving. 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 Required: Yes 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 Name: Allergies No Known Allergies Allergy (Verified 10/05/23 08:10) Medication List - Last Reconciled 10/05/23 by EDWARD France-C atorvastatin 80 mg PO DAILY budesonide-formoterol 80-4.5 mcg/actuation (Symbicort) 2 puffs inhalation BID esomeprazole magnesium 20 mg PO DAILY lisinopril 10 mg PO DAILY HPI HPI Comments History of Present Illness Details A 58-year-old male scheduled to be seen as follow-up presents with RUQ pain He is here with his - they say went to ED too busy - so they left- He then went to pcp- can not be seen until October- RQ pain for the past 2 week-worse when he lays down-he said he had a follow back in 2013, that is when pain began and it is intermittent. His appetite and bowels are normal- EGD/ colon 01/2021- repeat 5 years-reviewed report, pathology recommendations Last encounter 05/2021-which time acid reflux, H pylori was treated he had no GI concerns. Following up with PCP for NAFLD No nausea, vomiting, hematemesis, hematochezia fever or chills [facility] Medical History Arthritis Asthma Back pain Depression GERD (gastroesophageal reflux disease) History of traumatic head injury HTN (hypertension) Hypercholesteremia Migraines Right sided abdominal pain Umbilical hernia Surgical History History of cystoscopy History of ear surgery History of testicular surgery Hx of appendectomy Hx of prostatectomy Family History Father Heart problem Diabetes Asthma Mother HTN (hypertension) Heart problem Maternal Grandfather Stomach cancer Throat cancer Maternal Grandmother Stomach cancer Paternal Uncle Brain cancer Skin cancer Social History Household Members: None Alcohol intake: current Alcohol intake frequency: holidays/special occasions only Alcohol type: beer Current occupational status: unemployed Review of Systems Const All systems reviewed & are unremarkable except as noted in HPI and below Card Denies chest pain and Denies dyspnea Resp Denies dyspnea GI Reports abdominal pain, Denies hematochezia, Denies change in bowel habits, Denies heartburn, Denies nausea and Denies vomiting Physical Exam Vital Signs: Last Vital Signs Pulse 70 10/05/23 08:10 BP 151/91 H 10/05/23 08:10 BMI result Body Mass Index 34.5 Const General: cooperative, healthy appearing, comfortable and no acute distress Nutritional Appearance: overweight Orientation/consciousness: patient oriented x3 Limitations: language barrier Eyes Sclerae: sclerae normal Resp Effort & Inspection: normal respiratory effort and able to speak in complete sentences Auscultation: clear to auscultation bilaterally, no rales, no rhonchi and no wheezes Cardio Rate: regular rate Rhythm: regular rhythm Heart sounds: S1 normal heart sound present and S2 normal heart sound present GI Palpation (GI): Soft to palpation, nontender and no guarding Auscultation: normal bowel sounds Skin General skin exam: no rashes or lesions noted Neuro General: patient oriented x3 Extrem General: Yes full ROM Psych Appearance: well kempt Mental Status: mental status grossly normal Speech and movement: Normal speech and movement present and Clear speech present Affect: normal affect Attitude: cooperative Thought content: Normal thought content present Results Reviewed Results Reviewed: Operative Note Date of Service: 02/03/21 Narrative: Pre-op diagnosis: GERD sx even with water, Increased weight x2 years, Colon cancer screeningo (Hx asthma controlled,GERD) Post-op diagnosis: Hiatal hernia, colonic polyps, 2+ Internal Hemorrhoids. Procedure: EGD-with bx-gastric COLO- with exc polypectomy cold bx forceps Implants: NONE Surgeon: Quita Rojas MD Anesthesia: MAC (MD KALLIE) EGD: Video endoscope was introduced without difficulty. There was a significant amount of soft tissue present in the posterior pharynx. Soft palate was sensitive to light pressure. (easy gag.) Entry to esophagus was easy. Mucosa was normal to the GE junction. Distal to this was a small 3-4cm Hiatal hernia. Stomach: No bile, no erythemal Duodenal Bulb and Duodenum were normal. Random gastric bx were obtained. COLO: DERECK: Prostate was normal Adult slim scope was advanced slowly from rectosigmoid, descending, transverse and ascending colon in to the cecum. Appendiceal orifice, ileocecal valve were seen. PREP: Good. Slow with drawal scope good rotational views. 2 small polyps seen and removed excsionally with cold bx forceps technique. (Area on ileocecal valve was elevated but indistinct--see final path. ARV: clear; 1-2+ Internal hemorrhoids were noted. Estimated blood loss (mL): 10 Pathology: Gastric (Gastritis: H.Pylori --++; Colon polyps--? ileocecal valve(Path-lymphoid aggregate.)-Other was a diminutive Polyp in the ascending colon.--Tubular adenoma Condition: stable Disposition: PACU PLAN 5 year followup colo With gastric bx showing H. pylori--treatment of this will be reviewed with patient on his followup visit. Assessment & Plan Assessment & Plan (1) Abdominal pain: Comment: Right upper quadrant, somewhat vague, no association food or bowel-may be [id number] History of NAFLD- Will get CBC CMP Abdominal ultrasound assess gallbladder Code(s): R10.9 - Unspecified abdominal pain Plan: Continue to monitor (2) NAFLD (nonalcoholic fatty liver disease): Comment: Again reviewed avoid weight gain, keep good cholesterol and glucose control- may follow with pcp as he request Code(s): K76.0 - Fatty (change of) liver, not elsewhere classified (3) Right sided abdominal pain: Comment: Abdominal ultrasound CBC CMP Code(s): R10.9 - Unspecified abdominal pain Plan: Abdominal ultrasound CBC CMP (4) GERD (gastroesophageal reflux disease): Comment: Well controlled-no complain Code(s): K21.9 - Gastro-esophageal reflux disease without esophagitis Plan: Continue usual medication Plan Continue usual medication Update lab Abdominal ultrasound-assess gallbladder/liver Orders: Orders Comprehensive Met. Panel Today R10.9 - Unspecified abdominal pain Complete Blood Count Auto Diff Today R10.9 - Unspecified abdominal pain US abdomen complete Today R10.9 - Unspecified abdominal pain Thyroid Stimulating Hormone Today R10.9 - Unspecified abdominal pain Lipid Panel Today K76.0 - Fatty (change of) liver, not elsewhere classified Patient Instructions: Lifestyle and dietary modification Continue usual medication Update lab Abdominal ultrasound-assess gallbladder/liver Coding Level of Care Code New Pt Level 3 (63437) Diagnoses Abdominal pain R10.9 NAFLD (nonalcoholic fatty liver disease) K76.0 Right sided abdominal pain R10.9 GERD (gastroesophageal reflux disease) K21.9 Time Spent (min) 35 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
[2023-10-05 08:10] VITALS: BP 151/91; PULSE 70; BMI 34.5
== END 2023-10-05 08:51 | disposition home or self-care (01) ==
PROVIDERS: Visit Provider Physician Assistant
DX: K76.0 Fatty (change of) liver, not elsewhere classified (principal); K21.9 Gastro-esophageal reflux disease without esophagitis
CPT/HCPCS: 99213

== ENCOUNTER 2023-10-05 08:03 | Outpatient (REF) | payer OTHER, SELFPAY ==
[2023-10-05 09:03] LABS: MANUAL DIFF FLAG NO
[2023-10-05 09:09] LABS: Basophils Absolute Auto 0.1 X10*3/uL (0.0-0.2); Eosinophils Absolute Auto 0.1 X10*3/uL (0.0-0.4); Eosinophils Percent Auto 1.1 % (0-4); Hematocrit 41.3 % (42.0-52.0); Hemoglobin 13.5 g/dl (14.0-18.0); Imm Gran Abs Auto 0.03 X10*3/uL (0.00-0.03); Imm Gran Pct Auto 0.5 % (0.0-0.4); Lymphocytes Absolute Auto 1.8 X10*3/uL (1.2-4.9); Lymphocytes Percent Auto 28.4 % (20-40); Mean Corpuscular HGB Conc 32.7 g/dl (31.0-36.0); Mean Corpuscular Volume 97.9 fL (80.0-98.0); Mean Platelet Volume 10.4 fL (9.4-12.4); Monocytes Absolute Auto 0.6 X10*3/uL (0.1-1.2); Monocytes Percent Auto 9.5 % (2-11); Neutrophils Absolute Auto 3.8 x10*3/uL (2.0-8.3); Neutrophils Percent Auto 59.5 % (45-73); Platelet Count 156 X10*3/uL (160-400); Red Blood Count 4.22 X10*6/uL (4.60-5.80); Red Cell Distribution Width 11.9 % (11.0-16.0); White Blood Count 6.3 X10*3/uL (4.8-10.8)
[2023-10-05 09:46] LABS: Alanine Aminotransferase 34 U/L (0-40); Albumin Level 4.2 g/dL (3.5-5.0); Alkaline Phosphatase 94 U/L (39-117); Anion Gap 12 (12-20); Aspartate Amino Transferase 32 U/L (5-37); Bilirubin Total 0.7 mg/dL (0.0-1.0); Blood Urea Nitrogen 10 mg/dL (9-16); Calcium 9.6 mg/dL (8.4-10.2); Carbon Dioxide 28 mmol/L (22-29); Chloride 107 mmol/L (96-108); Cholesterol 199 mg/dL (<200); Estimated Glomerular Filt Rate > 60; Glucose Random 93 mg/dL (60-115); HDL Cholesterol 43 mg/dL (>40); LDL Cholesterol Calculated 127 mg/dL (<100); Potassium 4.8 mmol/L (3.3-5.1); Sodium 142 mmol/L (135-145); Total Protein 7.6 g/dL (6.5-8.0); Triglycerides 146 mg/dL (<150)
[2023-10-05 10:04] LABS: Thyroid Stimulating Hormone 1.16 uIU/mL (0.32-4.0)
== END 2023-10-05 08:04 | disposition home or self-care (01) ==
LOC: HO.LAB 08:03
PROVIDERS: Visit Provider Physician Assistant
DX: R10.9 Unspecified abdominal pain (principal); K76.0 Fatty (change of) liver, not elsewhere classified; K21.9 Gastro-esophageal reflux disease without esophagitis
CPT/HCPCS: 36415; 80053; 80061; 84443; 85025; 99212

== ENCOUNTER 2023-11-05 19:16 | Emergency (ER) | payer OTHER, SELFPAY ==
--- NOTE | ~2023-11-05 | CT_ITS ---
EXAMINATION: CT ABDOMEN AND PELVIS WITH CONTRAST CLINICAL INFORMATION: RUQ pain, rule out biliary, gallbladder disease COMPARISON: 10/29/2020 TECHNIQUE: Multidetector volumetric images were obtained from the superior aspect of the liver through the pubic symphysis following administration 85 mL of Omnipaque 350 intravenous contrast. Sagittal and coronal reformatted images were obtained on the technologist's workstation. Oral contrast: No This CT examination was performed using dose optimization techniques as appropriate, variously including the following: *Automated exposure control *Adjustment of mA and/or kV according to patient size (this includes techniques or standardized protocols for targeted exams where dose is matched to indication/reason for exam; i.e. extremities or head) *Use of iterative reconstruction technique DLP: 865 mGy-cm FINDINGS: LUNG BASES: Minimal dependent atelectasis. LIVER, GALLBLADDER, AND BILIARY TREE: The liver is normal in size, shape, and attenuation. No focal hepatic lesion or biliary ductal dilatation is present. The gallbladder is unremarkable with no evidence of radiopaque gallstones, gallbladder wall thickening, or obvious pericholecystic inflammatory changes. PANCREAS: Unremarkable. SPLEEN: Unremarkable. ADRENAL GLANDS: Unremarkable. KIDNEYS AND URETERS: The kidneys are normal in size, shape, and attenuation. No hydronephrosis, hydroureter, or calculi seen. Multiple small subcentimeter parapelvic left renal cysts. No recommended imaging follow-up. BLADDER: Unremarkable. GASTROINTESTINAL TRACT: Stomach, small bowel, and colon are normal in caliber. No bowel wall thickening or surrounding inflammatory changes. Appendix is not seen. No evidence of acute appendicitis. No intraperitoneal free fluid or free air. ABDOMINAL WALL: No significant hernia is appreciated. LYMPH NODES: Normal. VASCULAR: Unremarkable. PELVIC VISCERA: The prostate and seminal vesicles are unremarkable. OSSEOUS STRUCTURES: No acute osseous abnormalities. Minimal osteoarthritis in the hips and SI joints. CT/CT abdomen pelvis w IV con IMPRESSION: No acute intra-abdominal or intrapelvic abnormalities. Normal CT appearance of the bile ducts and gallbladder.
[2023-11-05 19:22] VITALS: BP 153/106; PULSE 97; RESP 20; TEMP 36.7; O2SAT 96; BMI 32.1
--- NOTE | 2023-11-05 20:19 | MHC.EDTECH ---
Patient brought into triage area,Labs,and a urine sample collected and sent o lab.
[2023-11-05 20:30] LABS: MANUAL DIFF FLAG NO
[2023-11-05 20:32] LABS: Basophils Absolute Auto 0.1 X10*3/uL (0.0-0.2); Basophils Percent Auto 0.5 % (0-2); Eosinophils Absolute Auto 0.1 X10*3/uL (0.0-0.4); Eosinophils Percent Auto 1.4 % (0-4); Hematocrit 40.2 % (42.0-52.0); Hemoglobin 13.2 g/dl (14.0-18.0); Imm Gran Abs Auto 0.06 X10*3/uL (0.00-0.03); Imm Gran Pct Auto 0.7 % (0.0-0.4); Lymphocytes Absolute Auto 2.4 X10*3/uL (1.2-4.9); Lymphocytes Percent Auto 25.9 % (20-40); Mean Corpuscular HGB Conc 32.8 g/dl (31.0-36.0); Mean Corpuscular Hemoglobin 31.2 pg (27.0-33.0); Mean Platelet Volume 9.9 fL (9.4-12.4); Monocytes Absolute Auto 0.6 X10*3/uL (0.1-1.2); Neutrophils Absolute Auto 5.9 x10*3/uL (2.0-8.3); Neutrophils Percent Auto 64.5 % (45-73); Platelet Count 208 X10*3/uL (160-400); Red Blood Count 4.23 X10*6/uL (4.60-5.80); White Blood Count 9.1 X10*3/uL (4.8-10.8)
[2023-11-05 20:36] LABS: Appearance Urine Clear; Color Urine Yellow; Glucose Urine UA Negative (Negative); Leukocyte Esterase Urine Negative (Negative); Nitrite Urine Negative (Negative); Specific Gravity - Urine 1.015 (1.005-1.025); Urine Blood Negative (Negative); Urine Ketones Negative (Negative); Urine Protein Negative (Neg-Trace)
[2023-11-05 20:41] LABS: Bacteria Urine None Seen (None Seen); Hyaline Casts Urine 0-2 /LPF (0-2); RBC Urine 0-2 /HPF (0-2); Squamous Epithelial Cell Urine 0-2 /HPF (0-2); WBC Urine 0-5 /HPF (0-5)
[2023-11-05 20:50] LABS: Alanine Aminotransferase 47 U/L (0-40); Alkaline Phosphatase 94 U/L (39-117); Anion Gap 11 (12-20); Aspartate Amino Transferase 41 U/L (5-37); Bilirubin Direct 0.1 mg/dL (0.0-0.5); Bilirubin Total 0.4 mg/dL (0.0-1.0); Blood Urea Nitrogen 13 mg/dL (9-16); Calcium 9.5 mg/dL (8.4-10.2); Carbon Dioxide 28 mmol/L (22-29); Chloride 106 mmol/L (96-108); Creatinine Clr Calc Pharmacy 100.1; Estimated Glomerular Filt Rate > 60; Glucose Random 147 mg/dL (60-115); Lipase 25 U/L (8-78); Potassium 3.8 mmol/L (3.3-5.1); Sodium 141 mmol/L (135-145); Total Protein 7.5 g/dL (6.5-8.0)
[2023-11-06 00:33] VITALS: BP 149/93; PULSE 74; RESP 20; TEMP 36.7; O2SAT 96
[2023-11-06 01:57] LABS: COVID-19 Test Negative (Negative); IDNOW Serial# 08D9AD1C
--- NOTE | 2023-11-06 01:57 | ED.ABDPAIN ---
HPI - Abdominal Pain General Chief Complaint: Abdominal Pain Stated Complaint: rt side rib pain Time Seen by Provider: 11/06/23 01:42 Source: patient Mode of arrival: ambulatory Limitations: language barrier (Latvian speaking only, translator and interpreter used) History of Present Illness HPI narrative: 58-year-old male with a history of hypertension, hyperlipidemia, asthma, GERD, nonalcoholic fatty liver disease who presents emergency department for evaluation of right-sided abdominal pain x1 month. The patient states the pain is been constant. He states that the pain is worse with movement, coughing and with eating. States that over the past 2 days the pain is gotten worse. The pain does not radiate to his back. Patient had associated nausea but no vomiting or diarrhea. He states that he is had fever and chills over the past 2 days. Patient was seen by the GI clinic on 10/05/2023 for right upper quadrant pain unclear etiology. Patient had laboratory evaluation but no right upper quadrant ultrasound was obtained. Patient did have a right upper quadrant ultrasound on 11/24/2020 which was consistent with fatty liver disease, physiologic distended gallbladder without evidence of stones, sludge, polyps, wall thickening or pericholecystic fluid. Related Data Home Medications Medication Instructions Recorded Confirmed atorvastatin 80 mg tablet 80 mg PO DAILY 10/05/23 10/05/23 budesonide-formoterol HFA 80 2 puff inhalation BID 10/05/23 10/05/23 mcg-4.5 mcg/actuation aerosol inhaler (Symbicort) esomeprazole magnesium 20 mg 20 mg PO DAILY 10/05/23 10/05/23 capsule,delayed release lisinopril 10 mg tablet 10 mg PO DAILY 10/05/23 10/05/23 Previous Rx's Medication Instructions Recorded aluminum hydrox-magnesium carb 254 10 ml PO QID PRN dyspepsia #355 mL 11/06/23 mg-237.5 mg/5 mL oral suspension (Gaviscon Extra Strength) Allergies Allergy/AdvReac Type Severity Reaction Status Date / Time acetaminophen [From Percocet] Allergy Dizziness Verified 11/05/23 19:27 oxycodone [From Percocet] Allergy Dizziness Verified 11/05/23 19:27 Review of Systems Review of Systems Yes all other systems are reviewed and are negative PMFSH Past Medical History [facility] Narrative: Social history: Patient denies tobacco use. He states he drinks alcohol occasionally on weekends. He denies drug use. Onset Date is defined in the Problem List Problems that require an onset date and time if occurred within 24 hrs of arrival to the ED Aortic Dissection and Rupture; Neurologic impairment; Cardiopulmonary Arrest; Endotracheal Intubation; Insertion or Replacement of Mechanical Circulatory Assist Device Medical History Arthritis Back pain History of traumatic head injury Migraines Depression Umbilical hernia Right sided abdominal pain Hypercholesteremia HTN (hypertension) Asthma GERD (gastroesophageal reflux disease) Surgical History History of cystoscopy Hx of prostatectomy Hx of appendectomy History of testicular surgery History of ear surgery Family History Family History Father Heart problem Diabetes Asthma Mother HTN (hypertension) Heart problem Maternal Grandfather Stomach cancer Throat cancer Maternal Grandmother Stomach cancer Paternal Uncle Brain cancer Skin cancer Social History Social History Household Members: None Alcohol intake: current Alcohol intake frequency: holidays/special occasions only Alcohol type: beer Smoked in Last 30 Days: No Advance Directives: No Advance Directives Information Provided: Yes Current occupational status: unemployed Physical Exam ED Vital Signs: Vital Signs - 24 hr 11/05/23 19:22 11/06/23 00:33 Temperature 98.0 F 98.0 F Pulse Rate 97 74 Respiratory Rate 20 20 Blood Pressure 153/106 H 149/93 H Pulse Oximetry 96 96 Oxygen Delivery Method Room Air Room Air BMI result Body Mass Index 32.1 Vital signs revealed an elevated blood pressure of 153/106. Exam: General: Awake, alert in no distress Head: Normocephalic, atraumatic EENT: PERRL, Lids normal, sclera normal, conjunctiva normal, nose normal , ears normal, throat without erythema or exudates Neck: Supple, no adenopathy, no trachea midline or C-spine tenderness Lung: breath sounds symmetric, no wheezing, rales or rhonchi Chest: symmetric movement, nontender Heart: regular rate and rhythm, normal S1, S2 no murmurs or rubs Abdomen: Obese, soft, moderate right upper quadrant tenderness with a positive Bautista sign, normoactive bowel sounds Back: no vertebral tenderness, no CVAT Extremities: no deformities, moves all extremities Neuro: Awake, alert, oriented, normal speech, moves all extremities symmetrically Psych: Pleasant, cooperative Medical Decision Making Medical Decision Making [facility] Narrative: 58-year-old male with a history of hypertension, hyperlipidemia, asthma, GERD, nonalcoholic fatty liver disease who presents emergency department for evaluation of right-sided,, abdominal pain x1 month worse with eating, movement, cough. Patient states the pain is gotten worse over the past 2 days he is also had associated fever and chills with no nausea vomiting or diarrhea. Vital signs revealed an elevated blood pressure otherwise unremarkable. Physical examination did reveal right upper quadrant tenderness positive Bautista sign. Following evaluation was ordered: CBC, BMP, lipase, liver panel, COVID-19, influenza, CT scan of the abdomen pelvis with IV contrast Patient was treated with the following medications: Toradol 15 mg IV, Zofran 4 mg IV and normal saline x1 L 02:05 My interpretation patient's laboratory evaluation is as follows: CBC was normal. Glucose elevated 147. AST and ALT elevated 41 and 47. Lipase normal 25. COVID-19 negative. Influenza negative 04:55 CT scan of the patient's abdomen pelvis was unremarkable, patient's gallbladder appeared to be normal with no gallbladder wall thickening or obvious pericholecystic inflammatory changes. At this time I do not have a clear etiology for the patient's pain. You will need to follow-up with the GI Clinic for further outpatient evaluation of his gallbladder with possible ultrasound and HIDA scan. 05:57 Patient was given a GI cocktail with viscous lidocaine 10 cc, 10 cc and Maalox 30 cc with improvement of the patient's pain. Patient was prescribed extra-strength Gaviscon 10 cc 4 times a day as needed for pain, he was given printed and verbal instructions discharged home. Differential Diagnosis Differential Diagnoses: The differential diagnosis associated with the presentation includes Differential diagnosis includes was not limited to acute cholecystitis, pancreatitis, gastritis Admission/Observation Consideration of admission/observation: Escalation of care including admission/observation considered Lab Data [facility] Lab Attestation statement: I reviewed the patient's lab results. 11/05/23 20:19 11/05/23 20:19 Labs: Lab Results 11/05/23 11/06/23 Range/Units 20:19 01:36 WBC 9.1 (4.8-10.8) X10*3/uL RBC 4.23 L (4.60-5.80) X10*6/uL Hgb 13.2 L (14.0-18.0) g/dl Hct 40.2 L (42.0-52.0) % MCV 95.0 (80.0-98.0) fL MCH 31.2 (27.0-33.0) pg MCHC 32.8 (31.0-36.0) g/dl RDW 12.0 (11.0-16.0) % Plt Count 208 D (160-400) X10*3/uL MPV 9.9 (9.4-12.4) fL Immature Gran % (Auto) 0.7 H (0.0-0.4) % Neut % (Auto) 64.5 (45-73) % Lymph % (Auto) 25.9 (20-40) % [place] % (Auto) 7.0 (2-11) % Eos % (Auto) 1.4 (0-4) % Baso % (Auto) 0.5 (0-2) % Lymph # (Auto) 2.4 (1.2-4.9) X10*3/uL [place] # (Auto) 0.6 (0.1-1.2) X10*3/uL Eos # (Auto) 0.1 (0.0-0.4) X10*3/uL Baso # (Auto) 0.1 (0.0-0.2) X10*3/uL Abs Immat Gran (auto) 0.06 H (0.00-0.03) X10*3/uL Absolute Neuts (auto) 5.9 (2.0-8.3) x10*3/uL Absolute Nucleated RBC 0.000 (0.0-0.012) X10*3/uL Nucleated RBC % (auto) 0.0 (0.0-0.2) /100WBC Sodium 141 (135-145) mmol/L Potassium 3.8 (3.3-5.1) mmol/L Chloride 106 (96-108) mmol/L Carbon Dioxide 28 (22-29) mmol/L Anion Gap 11 L (12-20) BUN 13 (9-16) mg/dL Creatinine 1.00 (0.5-1.4) mg/dL Estim Creat Clear Calc 100.1 Estimated GFR > 60 Random Glucose 147 H (60-115) mg/dL Calcium 9.5 (8.4-10.2) mg/dL Total Bilirubin 0.4 (0.0-1.0) mg/dL Direct Bilirubin 0.1 (0.0-0.5) mg/dL AST 41 H (5-37) U/L ALT 47 H (0-40) U/L Alkaline Phosphatase 94 (39-117) U/L Total Protein 7.5 (6.5-8.0) g/dL Albumin 4.0 (3.5-5.0) g/dL Lipase 25 (8-78) U/L Urine Color Yellow Urine Appearance Clear Urine pH 6.0 (5.0-9.0) Ur Specific Conrad 1.015 (1.005-1.025) Urine Protein Negative (Neg-Trace) mg/dL Urine Glucose (UA) Negative (Negative) mg/dL Urine Ketones Negative (Negative) mg/dL Urine Blood Negative (Negative) Urine Nitrite Negative (Negative) Ur Leukocyte Esterase Negative (Negative) Urine RBC 0-2 (0-2) /HPF Urine WBC 0-5 (0-5) /HPF Ur Squamous Epith Cells 0-2 (0-2) /HPF Urine Bacteria None Seen (None Seen) Hyaline Casts 0-2 (0-2) /LPF COVID-19 (ROBERT) Negative (Negative) COVID-19 Clin Com See Note Influenza Type A (ANA) Negative (Negative) Influenza Type B (ANA) Negative (Negative) Influenza A & B Note See Note Radiology Impression Discussion of test interpretation with radiology: I have reviewed the radiologist's reading. Radiologist Impression: CT ABDOMEN AND PELVIS WITH CONTRAST IMPRESSION: No acute intra-abdominal or intrapelvic abnormalities. Normal CT appearance of the bile ducts and gallbladder. Dictated By: n Signed By: <Electronically signed by n in OV> Medications Administered Discontinued Medications Generic Name Dose Route Start Last Admin Trade Name Freq PRN Reason Stop Dose Admin Al Hydroxide/Mg Hydroxide 30 ml 11/06/23 05:04 11/06/23 05:35 Magnesium Hydrox/Alum Hydrox 30 Ml Oral.Susp PO 11/06/23 05:05 30 ml ONCE STA Administration Belladonna Alkaloids/Phenobarbital 10 ml 11/06/23 05:04 11/06/23 05:35 Phenobarb/Hyoscy/Atropine/Scop 10 Ml Elixir PO 11/06/23 05:05 10 ml ONCE ONE Administration Sodium Chloride 1,000 mls @ 999 mls/hr 11/06/23 01:56 11/06/23 03:38 Ns IV 11/06/23 02:56 Infused .Q1H1M STA Infusion Iohexol 85 ml 11/06/23 02:18 11/06/23 02:19 Iohexol 350 Mg/Ml 100 Ml Infus..Btl IV 11/06/23 02:19 85 ml ONCE ONE Administration Ketorolac Tromethamine 15 mg 11/06/23 01:56 11/06/23 02:24 Ketorolac Tromethamine 15 Mg/Ml Vial IVPUSH 11/06/23 01:57 15 mg ONCE STA Administration Lidocaine HCl 10 ml 11/06/23 05:04 11/06/23 05:35 Lidocaine Hcl Viscous 2 % 15 Ml Solution PO 11/06/23 05:05 10 ml ONCE ONE Administration Ondansetron HCl 4 mg 11/06/23 01:56 11/06/23 02:23 Ondansetron Hcl 4 Mg/2 Ml Vial IVPUSH 11/06/23 01:57 4 mg ONCE ONE Administration Discharge Plan Discharge Clinical Impression: Abdominal pain Qualifiers: Abdominal location: right upper quadrant Qualified Code(s): R10.11 - Right upper quadrant pain Patient Disposition: Home, Self-Care Instructions: Biliary Colic (ED) Additional Instructions: Your blood work was normal. The CT scan of your abdomen pelvis did not reveal a clear cause for your pain. You will need to follow-up with your doctor to further evaluate your gallbladder as an outpatient. You may need an ultrasound of your gallbladder and a HIDA scan to see if your gallbladder is squeezing appropriately. Take extra-strength Gaviscon 10 mL (2 tsp) 4 times a day as needed for abdominal pain. Follow-up with your doctor in 2 days. Please return to the emergency department if your symptoms get worse or if you develop any symptoms that are concerning to you. Prescriptions: New Gaviscon Extra Strength 254-237.5 mg/5 mL suspension 10 ml PO QID PRN (Reason: dyspepsia) Qty: 355 0RF No Action esomeprazole magnesium 20 mg capsule,delayed release(DR/EC) 20 mg PO DAILY atorvastatin 80 mg tablet 80 mg PO DAILY lisinopril 10 mg tablet 10 mg PO DAILY budesonide-formoterol [Symbicort] 80-4.5 mcg/actuation HFA aerosol inhaler 2 puff inhalation BID
[2023-11-06 02:15] LABS: IDNOW Serial# 152EDE1D; Influenza A Negative (Negative); Influenza B2 Negative (Negative)
[2023-11-06] MEDS: iohexoL 350 MG/ML 100 ML INFUS..BTL 85 ML IV (02:19)
[2023-11-06] MEDS: ondansetron HCL 4 MG/2 ML VIAL IVPUSH (02:23)
[2023-11-06] MEDS: Ketorolac Tromethamine 15 MG/ML VIAL IVPUSH (02:24)
[2023-11-06] MEDS: 0.9 % Sodium Chloride 1,000 ML 999 ML IV (02:24)
[2023-11-06] MEDS: Lidocaine HCl Viscous 2 % 15 ML SOLUTION 10 ML PO (05:35)
[2023-11-06] MEDS: PHENobarb/Hyoscy/Atropine/Scop 10 ML ELIXIR PO (05:35)
[2023-11-06] MEDS: Magnesium Hydrox/Alum Hydrox 30 ML ORAL.SUSP PO (05:35)
== END 2023-11-06 06:11 | disposition home or self-care (01) ==
PROVIDERS: Emergency Provider Emergency Medicine Emergency Medical Services
DX: R10.11 Right upper quadrant pain (principal); K76.0 Fatty (change of) liver, not elsewhere classified; I10 Essential (primary) hypertension; E78.00 Pure hypercholesterolemia, unspecified; Z79.02 Long term (current) use of antithrombotics/antiplatelets; Z79.899 Other long term (current) drug therapy
CPT/HCPCS: 36415; 74177; 80048; 80076; 81001; 83690; 85025; 87502; 87635; 96361; 96374; 96375; 99284; 99285; J1885; J2405; Q9967

== ENCOUNTER 2023-12-01 08:47 | Outpatient (AMB) | payer OTHER, SELFPAY ==
[2023-12-01 08:49] VITALS: BP 135/87; PULSE 79; BMI 31.3
--- NOTE | 2023-12-01 08:49 | MHC.OFFVIS ---
Intake Vital Signs 12/01/23 08:49 Height 5 ft 11 in Weight 224 lb 6.889 oz BMI 31.3 BP 135/87 Blood Pressure Location Lt brachial Position Sitting Pulse 79 Pulse Source Pulse Oximeter Intake Visit Reasons: 8 week follow up Intake Note: Pt presents to the office today for a 8 week follow up for abdominal pain. Pt states he is having stomach pain is right upper quadrant. 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: Johnson([id number]) Allergies acetaminophen [From Percocet] Allergy (Verified 12/01/23 08:52) Dizziness oxycodone [From Percocet] Allergy (Verified 12/01/23 08:52) Dizziness Medication List - Last Reconciled 12/01/23 by Lizzie Santana PA-C aluminum hydrox-magnesium carb 254-237.5 mg/5 mL (Gaviscon Extra Strength) 10 mL PO QID PRN atorvastatin 80 mg PO DAILY budesonide-formoterol 80-4.5 mcg/actuation (Symbicort) 2 puffs inhalation BID esomeprazole magnesium 20 mg PO DAILY lisinopril 10 mg PO DAILY HPI HPI Comments History of Present Illness Details A 58 y/o male chronic RUQ pain- pain seems to come and go, he continues to press son right rib- CT 10/2023- no findings last seen 2020- RUQ- same c/o-U/S - reveals fatty liver- C/o acid-takes a pill-been taking it for years does not seem to help-he has lot of acid R Reviewed EGD [id number] for colonoscopy 2025 Appetite is not affected- Bowels are not an issue No nausea, vomiting, hematemesis, hematochezia, fever or chills PFSH Medical History (Updated 12/01/23 @ 10:04 by Lizzie Santana PA-C) Arthritis Back pain History of traumatic head injury Migraines Depression Umbilical hernia Right sided abdominal pain Hypercholesteremia HTN (hypertension) Asthma GERD (gastroesophageal reflux disease) Surgical History History of cystoscopy Hx of prostatectomy Hx of appendectomy History of testicular surgery History of ear surgery Family History Father Heart problem Diabetes Asthma Mother HTN (hypertension) Heart problem Maternal Grandfather Stomach cancer Throat cancer Maternal Grandmother Stomach cancer Paternal Uncle Brain cancer Skin cancer Social History Household Members: None Alcohol intake: current Alcohol intake frequency: holidays/special occasions only Alcohol type: beer Patient Tobacco Use Status: Never used Tobacco Current occupational status: unemployed Review of Systems Const All systems reviewed & are unremarkable except as noted in HPI and below Card Denies chest pain and Denies dyspnea Resp Denies dyspnea GI Reports abdominal pain, Reports heartburn, Denies nausea and Denies vomiting Physical Exam Vital Signs: Last Vital Signs Pulse 79 12/01/23 08:49 BP 135/87 12/01/23 08:49 BMI result Body Mass Index 31.3 Const General: cooperative, healthy appearing, comfortable and no acute distress Nutritional Appearance: overweight Orientation/consciousness: patient oriented x3 Limitations: language barrier Eyes Sclerae: sclerae normal Resp Effort & Inspection: normal respiratory effort and able to speak in complete sentences Cardio Rate: regular rate Rhythm: regular rhythm Heart sounds: S1 normal heart sound present and S2 normal heart sound present GI Inspection: Yes distended and Yes obesity Palpation (GI): Soft to palpation and Tenderness to palpation present (GI) in the RUQ; with no rebound tenderness Skin General skin exam: no rashes or lesions noted Neuro General: patient oriented x3 Extrem General: Yes full ROM Psych Appearance: grossly normal and well kempt Mental Status: mental status grossly normal Speech and movement: Clear speech present Affect: normal affect Attitude: cooperative Thought content: Normal thought content present Results Reviewed Results Reviewed: US/US abdomen complete IMPRESSION: Echogenic liver suggestive of fatty infiltration. Small left renal cyst. Limited visualization of the pancreas. CT/CT abdomen pelvis w IV con IMPRESSION: No acute intra-abdominal or intrapelvic abnormalities. Normal CT appearance of the bile ducts and gallbladder. Assessment & Plan Assessment & Plan (1) NAFLD (nonalcoholic fatty liver disease): Comment: Again reviewed avoid weight gain, keep good cholesterol and glucose control- may follow with pcp as he request Code(s): K76.0 - Fatty (change of) liver, not elsewhere classified (2) Right sided abdominal pain: Comment: Abdominal ultrasound-reviewed fatty liver CT 10/2023-no findings p/e-tender at anterior rib-may be musculoskeletal Code(s): R10.9 - Unspecified abdominal pain (3) GERD (gastroesophageal reflux disease): Comment: Breakthrough encouraged 30 minutes before meals will switch from esomeprazole to pantoprazole 40 mg in follow-up for progress Code(s): K21.9 - Gastro-esophageal reflux disease without esophagitis Plan: Pantoprazole 40 mg Review reflux precautions Encouraged food diary try to identify culprits Plan d/c esomeprazole- begin- pantoprazole 40 mg Review reflux precautions food diary 3 mos Medications: New pantoprazole 40 mg PO DAILY 30 days 30 tabs 4RF Patient Instructions: 58-year-old male chronic right upper quadrant pain reviewed ultrasound and CT may likely be musculoskeletal d/c esomeprazole- begin- pantoprazole 40 mg-30 minutes empty stomach Food diary, try to identify culprits Review reflux precautions We reviewed ultrasound and CT-once again questions answered Will follow back in 1 month for progress Coding Level of Care Code Est Pt Level 4 (20088) Diagnoses NAFLD (nonalcoholic fatty liver disease) K76.0 Right sided abdominal pain R10.9 GERD (gastroesophageal reflux disease) K21.9 Time Spent (min) [address]/medical interpreter [id number]
== END 2023-12-01 09:18 | disposition home or self-care (01) ==
PROVIDERS: PCP Student in an Organized Health Care Education/Training Program; Visit Provider Physician Assistant
DX: K76.0 Fatty (change of) liver, not elsewhere classified (principal); R10.9 Unspecified abdominal pain; K21.9 Gastro-esophageal reflux disease without esophagitis
CPT/HCPCS: 99214

== ENCOUNTER → 2023-12-01 08:47 | Outpatient (BNVA) | payer OTHER, SELFPAY | PROVIDERS: PCP Student in an Organized Health Care Education/Training Program; Visit Provider Physician Assistant | DX: K76.0 Fatty (change of) liver, not elsewhere classified (principal); K21.9 Gastro-esophageal reflux disease without esophagitis; R10.9 Unspecified abdominal pain | CPT/HCPCS: 99212 ==

== ENCOUNTER 2024-01-17 10:15 | Outpatient (REF) | payer OTHER, SELFPAY ==
[2024-01-17 14:40] LABS: Alanine Aminotransferase 27 U/L (0-40); Albumin Level 4.3 g/dL (3.5-5.0); Alkaline Phosphatase 96 U/L (39-117); Anion Gap 13 (12-20); Aspartate Amino Transferase 25 U/L (5-37); Bilirubin Direct 0.2 mg/dL (0.0-0.5); Bilirubin Total 0.7 mg/dL (0.0-1.0); Blood Urea Nitrogen 12 mg/dL (9-16); Calcium 9.4 mg/dL (8.4-10.2); Carbon Dioxide 27 mmol/L (22-29); Chloride 105 mmol/L (96-108); Cholesterol 173 mg/dL (<200); Estimated Glomerular Filt Rate > 60; Glucose Fasting 109 mg/dL (60-99); HDL Cholesterol 37 mg/dL (>40); LDL Cholesterol Calculated 77 mg/dL (<100); Potassium 4.4 mmol/L (3.3-5.1); Sodium 141 mmol/L (135-145); Total Protein 7.6 g/dL (6.5-8.0); Triglycerides 297 mg/dL (<150)
== END 2024-01-17 10:16 | disposition home or self-care (01) ==
LOC: HO.CHCLDS 10:15
PROVIDERS: Visit Provider Student in an Organized Health Care Education/Training Program
DX: I10 Essential (primary) hypertension (principal); E78.00 Pure hypercholesterolemia, unspecified
CPT/HCPCS: 36415; 80048; 80061; 80076

== ENCOUNTER 2024-12-21 07:44 | Outpatient (AMB) | payer OTHER, SELFPAY ==
--- OUTSIDE RECORDS SUMMARY | 2024-12-21 07:49 | XMS_ITS | Encounter Summary ---
Author Organization [employer] Address [address] [place] [address] [address] [place] [address] Care Team Providers Care Council Member Name Role Phone Brigette Moody MD Primary Care Provider [phone] Encounter Details Date Type Department Care Team (Latest Contact Info) Description 12/11/2024 10:15 AM EST Procedure Visit [facility] [address] [place], [place] [id number] Brigette Moody MD [address] [place] [address] Chronic pain of left knee (Primary Dx) Social History Tobacco Use Types Packs/Day Years Used Date Smoking Tobacco: Never Passive Smoke Exposure: Never Smokeless Tobacco: Never Alcohol Use Standard Drinks/Week Comments Yes 1 (1 standard drink = 0.6 oz pur e alcohol) Depression Answer Date Recorded Patient Health Questionnaire-9 Score 2 11/27/2024 Patient Health Questionnaire-9 Score 2 11/27/2024 Last PHQ-9: Questionnaire Data Not on file 0 11/27/2024 Housing Stability Answer Date Recorded What is your housing situation today? I have nicolas nicholas 11/27/[address] you li ve. Do you have problems with any of the following? None of the above 11/27/2024 Food Insecurity Answer Date Recorded Within the past 12 months, y ou worried that your food would run out before you got money to buy more: Never True 01/10/2024 Within the past 12 months,th e food you bought just didn't last and you didn't have enough money to get more: Never True Transportation Answer Date Recorded In the past 12 months, has l ack of transportation kept you from medical appts, meetings, work or from getting things needed for daily living? No 01/10/2024 Utilities Answer Date Recorded In the past 12 months, has t he electric, gas, oil or water company threatened to shut off services in your home? No 01/10/2024 Depression Answer Date Recorded Patient Health Questionnaire-2 Score 1 11/27/2024 Internet Access Answer Date Recorded Internet Access Q1 No 11/27/2024 Internet Access Q2 I do not want or need it 01/2025 Sex and Gender Information Value Date Recorded Sex Assigned at Male 08/23/2022 10:17 AM EDT Legal Sex Male 10:17 AM EDT Gender Identity Male 08/23/2022 10:17 AM EDT Sexual Orientation Straight 08/23/2022 10 :17 AM EDT documented as of this encounter Last Filed Vital Signs Vital Sign Reading Time Taken Comments Blood Pressure 137/84 12/11/2024 10:15 AM EST Pulse 69 12/11/2024 10:15 AM EST Temperature 36.1 ??C (96.9 ??F) 12/11/2024 10:[address] Respiratory Rate 18 12/11/2024 10:15 AM EST Oxygen Saturation 97% 12/11/2024 10:15 AM EST Inhaled Oxygen Concentration - - Weight 99.1 kg (218 lb 8 oz) 12/11/2024 10:15 AM EST Height 177.8 cm (5' 10 ) 12/11/2024 10:15 AM EST Body Mass Index 31.35 12/11/2024 10:15 AM EST documented in this encounter Progress Notes * Brigette Moody MD - 12/11/2024 10:15 AM ESTAssociated Order(s): Arthrocentesis Post-Procedure Diagnose(s): Chronic pain of left knee Subjective Patient ID: Gilberto Harris is a 59 y.o. male who presents for No chief complaint on file.. Knee Pain There was no injury mechanism. The pain is present in the left knee. The quality of the pain is described as aching. The pain is at a severity of 7/10. The pain is moderate. The pain has been Constant since onset. Associated symptoms include an inability to bear weight. The symptoms are aggravated by movement and weight bearing. He has tried acetaminophen for the symptoms. The treatment provided m ild relief. Review of Systems Constitutional: Negative. Respiratory: Negative. Cardiovascular: Negative. Gastrointestinal: Negative. Genitourinary: Negative. Musculoskeletal: Positive for arthralgias and gait problem. Objective Physical Exam Constitutional: Appearance: Normal appearance. Cardiovascular: Rate and Rhythm: Normal rate and regular rhythm. Pulmonary: Effort: Pulmonary effort is normal. Breath sounds: Normal breath sounds. Musculoskeletal: Left knee: Bony tenderness and crepitus present. Decreased range of motion. Tenderness present. Neurological: General: No focal deficit present. Mental Status: He is alert. Psychiatric: Mood and Affect: Mood normal. Behavior: Behavior normal. Patient ID: Gilberto Harris is a 59 y.o. male. Arthrocentesis Date/Time: 12/11/2024 10:16 AM Performed by: Brigette Moody MD Authorized by: Brigette Moody MD Consent: Consent obtained: Verbal and written Consent given by: Patient Risks, benefits, and alternatives were discussed: yes Risks discussed: Pain Alternatives discussed: Referral [place] protocol: Procedure explained and questions answered to patient or proxy's satisfaction: yes Relevant documents present and verified: yes Test results available: yes Imaging studies available: yes Required blood products, implants, devices, and special equipment available: yes Site/side marked: yes Immediately prior to procedure, a time out was called: yes Patient identity confirmed: Verbally with patient Location: Location: Knee Knee: L knee Procedure details: Preparation: Patient was prepped and draped in usual sterile fashion Needle gauge: 22 G Ultrasound guidance: no Approach: Lateral Steroid injected: yes Specimen collected: no Post-procedure details: Dressing: Adhesive bandage Procedure completion: Tolerated Assessment/Plan Diagnoses and all orders for this visit: Chronic pain of left knee Comments: Pt injected with 2ml of 40mg kenolog and 2ml of 1%lidocaine pt tolerated the procedure well Advised Ice and Active motion Orders: - triamcinolone acetonide (Kenalog-40) injection 40 mg - lidocaine (Xylocaine) 1 % injection 20 mg - triamcinolone acetonide (Kenalog-40) injection 40 mg Other orders - Arthrocentesis documented in this encounter Plan of Treatment Not on file documented as of this encounter Procedures Procedure Name Priority Date/Time Associated Diagnosis Comments [place] ARTHROCENTESIS ASPIR&/INJ MAJOR JT/BURSA W/O US Routine 12/11/2024 10:16 AM EST Chronic pain of left knee documented in this encounter Results * [place] ARTHROCENTESIS ASPIR&/INJ MAJOR JT/BURSA W/O US (12/11/2024 10:16 AM EST) Brigette Ruggiero MD - 12/11/2024 10:16 AM EST Brigette Moody MD ? 12/11/2024 10:29 AM Arthrocentesis Date/Time: 12/11/2024 10:16 AM Performed by: Brigette Moody MD Authorized by: Brigette Moody MD ?? Consent: ??Consent obtained: ??Verbal and written ??Consent given by: ??Patient ??Risks, benefits, and alternatives were discussed: yes ?Risks discussed: ??Pain ??Alternatives discussed: ??Referral [place] protocol: ??Procedure explained and questions answered to patient or proxy's satisfaction: yes ?Relevant documents present and verified: yes ?Test results available: yes ?Imaging studies available: yes ?Required blood products, implants, devices, and special equipment available: yes ?Site/side marked: yes ?Immediately prior to procedure, a time out was called: yes ?Patient identity confirmed: ??Verbally with patient Location: ??Location: ??Knee ??Knee: ??L knee Procedure details: ??Preparation: Patient was prepped and draped in usual sterile fashion ?Needle gauge: ??22 G ??Ultrasound guidance: no ?Approach: ??Lateral ??Steroid injected: yes ?Specimen collected: no ?? Post-procedure details: ??Dressing: ??Adhesive bandage ??Procedure completion: ??Tolerated Brigette Moody MD IN CLINIC/BEDSIDE ORDERABLES Fin al Result documented in this encounter Visit Diagnoses Diagnosis Chronic pain of left knee- Primary documented in this encounter Administered Medications Inactive Administered Medications - up to 3 most recent administrations Medication Order MAR Action Action Date Dose Rate Site lidocaine (Xylocaine) 1 % injection 20 mg 20 mg (2 mL), Injection, Once, On Tue12/11/24 at 1030, For 1 doseIndications:Chronic pain of left knee Given 12/11/2024 10:30 AM EST 20 mg triamcinolone acetonide (Kenalog-40) injection 40 mg 40 mg, Intra-articular, Once, On Tue12/11/24 at 1030, For 1 doseIndications:Chronic pain of left knee Given 12/11/2024 10:30 AM EST 40 mg triamcinolone acetonide (Kenalog-40) injection 40 mg 40 mg, Intra-articular, Once, On Tue12/11/24 at 1030, For 1 doseIndications:Chronic pain of left knee Given 12/11/2024 10:30 AM EST 40 mg documented in this encounter Additional Health Concerns Assessment Noted Time PHQ-9 Depression Total Score: 2 11/27/19 10:04 AM EST documented as of this encounter Care Teams Council Member Relationship Specialty Start Date End Date Brigette Moody MD [address] [place] [id number] PCP - General Family Medicine 11/05/15 documented as of this encounter
--- OUTSIDE RECORDS SUMMARY | 2024-12-21 07:49 | XMS_ITS | Clinical Summary ---
Author Organization [facility] it[facility] Address [address] [place] [address] Care Team Providers Care Hockey Scout Name Role Phone Unavailable Primary Care Provider Unavailabl e Social History Tobacco Use Types Packs/Day Years Used Date Smoking Tobacco: Never Assessed Sex and Gender Information Value Date Recorded Sex Assigned at Not on file Legal Sex Male 1:54 PM EST Gender Identity Not on file Sexual Orientation Not on file Plan of Treatment Health Maintenance Due Date Last Done Comments DTaP,Tdap,and Td Vaccines (1 - Tdap) 1985 Hepatitis B Vaccines (1 of 3 - 19+ 3-dose series) 1985 Pneumococcal Vaccine: 50+ Ye ars (1 of 1 - PCV) 2016 Zoster Vaccines (1 of 2) 2016 COVID-19 Vaccine (2023-2 5 season) 2024 Influenza Vaccine (#1) 2024 HIB Vaccines Aged Out No longer eligi ble based on patient's age to complete this topic HPV Vaccines Aged Out No longer eligi ble based on patient's age to complete this topic Hepatitis A Vaccines Aged Out No long er eligible based on patient's age to complete this topic IPV Vaccines Aged Out No longer eligi ble based on patient's age to complete this topic MMR Vaccines Aged Out No longer eligi ble based on patient's age to complete this topic Meningococcal ACWY Vaccine Aged Out N o longer eligible based on patient's age to complete this topic Meningococcal B Vacine Aged Out No lo nger eligible based on patient's age to complete this topic Pneumococcal Vaccine: Pediat rics (0 to 5 Years) and At-Risk Patients (6 to 64 Years) Aged Out No longer eligible b ased on patient's age to complete this topic RSV Immunization Patients Un willam 20 months Aged Out No longer eligible b ased on patient's age to complete this topic Varicella Vaccines Aged Out No longer eligible based on patient's age to complete this topic
--- OUTSIDE RECORDS SUMMARY | 2024-12-21 07:49 | XMS_ITS | Clinical Summary ---
Author Organization [employer] Address [address] [facility] 7t [place] [address] Care Team Providers Care Manager Risk Name Role Phone Brigette Moody MD Primary Care Provider [phone] Allergies No known active allergies Medications * This document contains information received from the source organization and may not represent a complete record from that organization. albuterol (2.5 MG/3ML) 0.083% nebulizer solution INHALE ONE AMPULE USING A NEBULIZER (3ml) THREE TIMES DAILY 2 Active albuterol 108 (90 Base) MCG/ACT inhaler INHALE TWO PUFFS FOUR TIMES DAILY 2 Active lisinopril 10 MG tablet Take 1 tablet (10 mg) by mouth in the morning. 30 tablet 11 3 Active Diclofenac Sodium (Voltaren Arthritis Pain) 1 % gel Apply to area BID 100 g 3 3 Active hydrOXYzine HCl (Atarax) 50 MG tablet TAKE ONE TABLET TWICE DAILY NEEDED FOR ANXIETY 30 tablet 1 3 Active ibuprofen 800 MG tablet TAKE ONE TABLET TWICE DAILY 60 tablet 1 3 Active aspirin 81 MG EC tablet Take 1 tablet (81 mg) by mouth in the morning. 30 tablet 4 01/17/20 25 Active ergocalciferol (Vitamin D2) 1.25 MG (68336 UT) capsule Take 1 capsule (1.25 mg) by mouth 1 (one) time per week. 5 capsule 4 Active atorvastatin (Lipitor) 80 MG tablet TAKE ONE TABLET DAILY 30 tablet 11 4 Active tamsulosin (Flomax) 0.4 MG 24 hr capsuleIndication s:Benign essential hypertension TAKE ONE CAPSULE DAILY 30 MINUTES FOLLOWING THE SAME MEAL EACH DAY 30 capsule 11 4 Active meloxicam (Mobic) 7.5 MG tablet TAKE ONE TABLET TWICE DAILY 60 tablet 2 Active Symbicort 80-4.5 MCG/ACT inhalerIndication s:Moderate persistent asthma without complication INHALE TWO PUFFS TWICE DAILY. RINSE MOUTH AFTER USE 10.2 g 2 4 Active Hospital, Clinic, or Other Facility Administered Medication Ordered Dose Route Frequency Start Date End Date Status triamcinolone acetonide (Kenalog-40) injection 40 mgIndications:Chronic pain of left knee 40 mg IX Once 12/11/2024 12/11/2024 Ended lidocaine (Xylocaine) 1 % injection 20 mgIndications:Chronic pain of left knee 20 mg IJ Once 12/11/2024 12/11/2024 Ended triamcinolone acetonide (Kenalog-40) injection 40 mgIndications:Chronic pain of left knee 40 mg IX Once 12/11/2024 12/11/2024 Ended Active Problems Problem Noted Date Diagnosed Date Insomnia 10/27/2022 GERD without esophagitis 10/27/2022 BPH (benign prostatic hyperplasia) 10/27/2022 Moderate persistent asthma without complication 10/27/2022 Benign essential hypertension 12/14/2019 Hypercholesterolemia 12/14/2019 Encounters Date Type Department Care Team Description 12/11/2024 10:15 AM EST Procedure Visit [facility] [address] [place] [address] Brigette Moody MD Chronic pain of left knee (Primary Dx) 12/11/2024 Travel 11/27/2024 10:00 AM EST Office Visit [facility] [address] [place] [address] Brigette Moody MD Benign essential hypertension (Primary Dx); Hypercholesterolemia; Prediabetes; Chronic pain of left knee 11/27/2024 Travel 11/26/2024 Telephone [facility] [address] [place] [address] Brigette Moody MD Chat Prep 10/29/2024 Travel 09/21/2024 Refill [facility] [address] [place] [address] Brigette Moody MD Moderate persistent asthma without complication from Last 3 Months Immunizations Name Administration Dates Next Due Influenza injectable quadriv alent IIV4 with preservative 07/23/2015 Influenza injectable quadriv alent preservative free 10/27/2022,07/29/2021,09/04/2020,2018 María Elena SARS-CoV-2 Vaccination 01/20/2021 TD (adult), 2 Lf tetanus tox oid, preservative free, adsorbed 09/03/2014 Tdap 07/13/2019 Social History Tobacco Use Types Packs/Day Years Used Date Smoking Tobacco: Never Passive Smoke Exposure: Never Smokeless Tobacco: Never Tobacco Cessation:Counseling Given: Not Answered Alcohol Use Standard Drinks/Week Comments Yes 1 [...] Orientation Straight 08/23/2022 10 :17 AM EDT Last Filed Vital Signs Vital Sign Reading [...] Mass Index 31.35 12/11/2024 10:15 AM EST Plan of Treatment Health Maintenance Due Date Last Done Comments CT Colonography 1966 Dental Oral Exam 1966 Dental Prophylaxis 1966 Dental X-Ray: Bitewings 1966 Dental X-Ray: Full Mouth 1966 FIT DNA/Cologuard 1966 FIT 1966 FOBT 1966 Sigmoidoscopy 1966 Alcohol/Substance Use Screening 1978 Hepatitis B Vaccines (1 of 3 - 19+ 3-dose series) 1985 Pneumococcal Vaccine: 50+ Years (1 of 2 - PCV) 1985 Zoster Vaccines (1 of 2) 2016 Diabetes: Hemoglobin A1C 04/22/2022 04/22/2021 COVID-19 Vaccine ( season) 2024 09/10/2021, 01/20/2021 Influenza Vaccine (#1) 2024 3, 07/29/2021, 09/04/2020, Additional history exists Depression Screening 11/27/2025 11/27/2024, 11/27/19 25 SDOH Screening 11/27/2025 11/27/2024 Tobacco Screening 12/11/2025 12/11/2024 Colonoscopy 01/24/2026 01/24/2021 Colorectal Cancer Screening 01/24/2026 Lipid Panel 01/16/2029 01/17/2024, 02/22, 10/28/2022, Additional history exists DTaP/Tdap/Td Vaccines (2 - Td or Tdap) 07/13/2029 07/13/2019, 09/03/2014 RSV Patients and Patients Aged 60 years or older (1 - 1-dose 75+ series) 2041 HIV Screening Completed 03/17/2023 Hepatitis C Screening Completed 03/17/2023 HIB Vaccines Aged Out No longer eligi [...] patient's age to complete this topic Meningococcal Vaccine Aged Out No sanjeev michelle eligible based on patient's age to complete this topic RSV under 20 months Aged Out No longe r eligible based on patient's age to complete this topic Rotavirus Vaccines Aged Out No longer eligible based on patient's age to complete this topic Procedures Procedure Name Priority Date/Time Associated Diagnosis Comments [place] ARTHROCENTESIS ASPIR&/INJ MAJOR JT/BURSA W/O US Routine 12/11/2024 10:16 AM EST Chronic pain of left knee LIPID PANEL, STANDARD Routine 01/17/2024 10:18 AM EDT Hypercholesterolem ia HEPATITIS PANEL, GENERAL Routine 03/17/2023 9:48 AM EDT Immunization overdue HIV 1 RNA, QN PCR W/RFL YESSICA (RTI,PI,INTEGRASE) Routine 03/17/2023 9:48 AM EDT Immunization overdue ZZZ HISTORICAL HEMOGLOBIN A1C Routine 04/22/2021 9:25 AM EDT HM COLONOSCOPY Routine 01/24/2021 from Last 3 Months or Most Recently Relevant to Health Maintenance Results * [place] ARTHROCENTESIS ASPIR&/INJ MAJOR JT/BURSA W/O US (12/11/2024 [...] yes ?Risks discussed: ??Pain ??Alternatives discussed: ??Referral [place] protocol: ??Procedure explained and questions answered to [...] details: ??Dressing: ??Adhesive bandage ??Procedure completion: ??Tolerated us Brigette Moody MD IN CLINIC/BEDSIDE ORDERABLES Fin al Result * (ABNORMAL) Lipid Panel, Standard (01/17/2024 10:18 AM EDT) Triglycerides 297(H) <150 mg/dL [facility] Comment:Desirable Triglyceri de: less than 150 mg/dLBorderline High Triglyceride 150-199 mg/dLHigh Triglyceride: 200-499 mg/dLVery High Triglyceride: greater than or equal to 5OO mg/dL Cholesterol 173 <200 mg/dL [facility] Comment:Desirable Cholestero l: less than 200 mg/dLBorderline High Cholesterol: 200-239 mg/dLHigh Cholesterol: greater than 239 mg/dL LDL Cholesterol Calculated 77 <100 mg/dL [facility] Comment:Desirable LDL: less than 100 mg/dLNear Optimal/Above Optimal LDL: 110- 129 mg/dLBorderline High LDL: 130-159 mg/dLHigh LDL: 160-189 mg/dLVery High LDL: greater than or equal to 190 mg/dL HDL Cholesterol 37(L) >40 mg/dL [facility] Comment:Desirable HDL: great er than 40 mg/dL Note: This HDL assay may give artificially low results in patients with liver disease. Blood Venous blood specimen / Unknown 01/17/2024 10:18 AM EDT 01/17/2024 2:12 PM EDT us Brigette Moody MD LAB BLOOD ORDERABLES Final Resul t [facility] [address] [place] [phone] * HIV-1 RNA, Quantitative, Real-Time PCR with Reflex to Genotype (RTI, PI, Integrase) (03/17/2023 9:48 AM EDT) Pathologist [facility] HIV 1 RNA, QN PCR NOT DETECTED copies/mL [facility], HIV 1 RNA, QN PCR NOT DETECTED Log copies/mL [facility], Comment: REFERENCE RANGE: NOT DETECTED copies/mL ?NOT DETECTED ??Log copies/mL This test was performed using Real-Time Polymerase Chain Reaction. Reportable range is 20 to 10,000,000 copies/mL (1.30-7.00 Log copies/mL). 03/17/2023 9:48 AM EDT 03/17/2023 9:49 AM EDT Narrative [facility] - 03/21/2023 12:29 AM EDT FASTING:YES FASTING: YES us Brigette Moody MD LAB BLOOD ORDERABLES Final Resul t Performing Organization Address [facility] Co de Phone Number [facility] [address], [facility] [place] [address] [facility], [address] [place] [address] * Hepatitis Panel, General (03/17/2023 9:48 AM EDT) Hepatitis A Antibody Total NON-REACT TROY NON-REACT TROY [facility] [place] [employer] Comment: For additional information, please refer to http://[employer]/faq/SAI701 (This link is being provided for informational/ educational purposes only.) Hepatitis B Surface Antibody QL NON-REACT TROY NON-REACT TROY [facility] [place] [employer] Hepatitis B Surface Ag NON-REACT TROY NON-REACT TROY [facility] [place] [employer] Hepatitis B Core Antibody Total NON-REACT TROY NON-REACT TROY [facility] [place] [employer] Hepatitis C Antibody NON-REACT TROY NON-REACT TROY [facility] [place] [employer] Index 0.11 <1.00 [facility] [place] [employer] Comment: HCV antibody was non-reactive. There is no laboratory evidence of HCV infection. In most cases, no further action is required. However, if recent HCV exposure is suspected, a test for HCV RNA (test code 01418) is suggested. For additional information please refer to http://[employer]/faq/ULZ87l8 (This link is being provided for informational/ educational purposes only.) 03/17/2023 9:48 AM EDT 03/17/2023 9:49 AM EDT Narrative [facility] - 03/21/2023 12:29 AM EDT FASTING:YES FASTING: YES Result [facility] Brigette Moody MD LAB BLOOD ORDERABLES Final Resul t Performing Organization Address [facility]/ZIP Co de Phone Number [facility] [address], [place] [address] [employer] [place] [employer] [address] [place] [address] * HEMOGLOBIN A1C (04/22/2021 9:25 AM EDT) [facility] Estimated Average Glucose 103 mg/dL [facility] Comment: eAG = Estimated average glucose which is %A1C expressed as average glucose, using the formula of the S9N-Oubohwu Average Glucose study (ADAG), Diabetes Care, Vol.31,#8, 2007 Hemoglobin A1c % 5.2 % FOU [facility] Comment: ?Hemoglobin A1C Reference Range ?Adults: ??4.8 - 6.0 % ?Non diabetic: ??< 6.0 % ?Goal: ??< 7.0 % Additional Action Suggested: ??> 8.0 % ?? Note: ??Hemoglobin A1c results are invalid for patients ?with abnormal amounts of HbF. ??Blood transfusions ?may impact the HbA1c concentration in the patient ?sample. 04/22/2021 9:25 AM EDT us Historical Provider HISTORICAL/NON ORDERABLE LABS Final Result [facility] [address] * Hm Colonoscopy (01/24/2021) Pathologist [facility] Colonoscopy Normal Normal us Historical Provider HEALTH MAINTENANCE Final Result from Last 3 Months or Most Recently Relevant to Health Maintenance Insurance [facility] - [facility] * Guarantor: Gilberto Harris Account Type Relation to Patient Date of Phone Billing Address Personal/Family Self [facility] [place] [address] * Guarantor: Gilberto Harris Account Type Relation to Patient Date of Phone Billing Address Personal/Family Self [facility] [place] [address] [place] [address] Care Teams Manager Risk Relationship Specialty Start Date End Date Brigette Moody MD [address] [place] [id number] PCP - General Family Medicine 11/05/15
--- OUTSIDE RECORDS SUMMARY | 2024-12-21 07:49 | XMS_ITS | Encounter Summary ---
Author Organization [employer] Address [address] [facility] [address]t [place] [address] Care Team Providers Care Electronics Utility Worker Name Role Phone Brigette Moody MD Primary Care Provider [phone] Encounter Details Date Type Department Care Team (Latest Contact Info) Description 11/27/2024 Travel Social History Tobacco Use Types Packs/Day Years [...] AM EDT documented as of this encounter Plan of Treatment Not on file documented as of this encounter Visit Diagnoses Not on filedocumented in this encounter Additional Health Concerns Assessment Noted Time PHQ-9 Depression Total Score: 2 11/27/19 25 10:04 AM EST documented as of this encounter Care Teams Electronics Utility Worker Relationship Specialty Start Date End Date Brigette Moody MD [address] [place] [address] PCP - General Family Medicine 11/05/15 documented as of this encounter
--- OUTSIDE RECORDS SUMMARY | 2024-12-21 07:49 | XMS_ITS | Encounter Summary ---
Author Organization [employer] Address [address] [place] [address] 7t [place] [address] Care Team Providers Care Clerk Stenographer Name Role Phone Brigette Moody MD Primary Care Provider [phone] Reason for Visit * Reason Onset Date Comments Chat Prep 11/26/2024 Encounter Details Date Type Department Care Team ([facility] Contact Info) Description 11/26/2024 Telephone [facility] [address] [place] [address] Brigette Moody MD [address] [place] [address] Chat Prep Social History Tobacco Use Types Packs/Day Years [...] AM EDT documented as of this encounter Miscellaneous Notes * Telephone Encounter - Mariah Austin [place] - 11/26/2024 2:08 PM EST Chart Prep Labs: done Images: done Vaccines due: yes Referrals: complete Screenings: Overdue care gaps: PHQ-9 documented in this encounter Plan of Treatment Not on file documented as of this encounter Visit Diagnoses Not on filedocumented in this encounter Additional Health Concerns Assessment Noted Time PHQ-9 Depression Total Score: 0 01/17/20 24 9:54 AM EDT documented as of this encounter Care Teams Clerk Stenographer Relationship Specialty Start Date End Date Brigette Moody MD [address] [place] [address] PCP - General Family Medicine 11/05/15 documented as of this encounter
--- OUTSIDE RECORDS SUMMARY | 2024-12-21 07:49 | XMS_ITS | Encounter Summary ---
Author Organization [employer] Address [address] [place] [address] [address] [place] [address] Care Team Providers Care Sample Distributor Name Role Phone Brigette Moody MD Primary Care Provider Reason for Visit * Reason Comments Hypertension Weight Management Encounter Details Date Type Department Care Team ([facility] st Contact Info) Description 11/27/2024 10:00 AM EST Office Visit [facility] [address] [place] [address] Brigette Moody MD [address] [place] [address] Benign essential hypertension (Primary Dx); Hypercholesterolemia; Prediabetes; Chronic pain of left knee Social History Tobacco Use Types Packs/Day Years [...] Sign Reading Time Taken Comments Blood Pressure 135/83 11/27/2024 10:03 AM EST Pulse 74 11/27/2024 10:03 AM EST Temperature 36.3 ??C (97.3 ??F) 11/27/2024 10:[address] Respiratory Rate 20 11/27/2024 10:03 AM EST Oxygen Saturation - - Inhaled Oxygen Concentration - - Weight 99.8 kg (220 lb) 11/27/2024 10:03 AM EST Height 177.8 cm (5' 10 ) 11/27/2024 10:03 AM EST Body Mass Index 31.57 11/27/2024 10:03 AM EST documented in this encounter Progress Notes * Brigette Moody MD - 11/27/2024 10:00 AM EST Subjective Patient ID: Gilberto Harris is a 59 y.o. male who presents for Hypertension and Weight Management. Hypertension This is a chronic problem. The problem is unchanged. The problem is controlled. Pertinent negativesinclude no anxiety, blurred vision, chest pain, headaches, malaise/fatigue, neck pain, orthopnea, palpitations, peripheral edema, PND, shortness of breath or sweats. Risk factors for coronary artery disease include obesity, male gender and sedentary lifestyle. Review of Systems Constitutional: Negative for malaise/fatigue. Eyes: Negative for blurred vision. Respiratory: Negative for shortness of breath. Cardiovascular: Negative for chest pain, palpitations, orthopnea and PND. Musculoskeletal: Negative for neck pain. Neurological: Negative for headaches. Objective Physical Exam Constitutional: Appearance: Normal appearance. Cardiovascular: Rate and Rhythm: Normal rate and regular rhythm. Pulmonary: Effort: Pulmonary effort is normal. Breath sounds: Normal breath sounds. Neurological: General: No focal deficit present. Mental Status: He is alert. Psychiatric: Mood and Affect: Mood normal. Behavior: Behavior normal. Assessment/Plan Diagnoses and all orders for this visit: Benign essential hypertension Comments: Much improved Maintain a low-sodium diet (less than 2 grams per day). Maintain a regular cardiovascular exercise program. Advised to maintain a low-fat, low-cholesterol diet. Counseled regarding importance of weight loss. Counseled re: potential co-morbidities including cardiovascular disease. Hypercholesterolemia Cont Statin .Advised low fat diet and Weight loss Prediabetes Advised Low sugar and Low carb diet. Counseled regarding self-monitoring of blood glucose. Counseled re: potential co-morbidities including cardiovascular disease. Counseled re: potential co-morbidities include neuropathy and retinopathy. Counseled re: potential co-morbidities include nephropathy. Chronic pain of left knee Comments: Scheudled for Knee injection documented in this encounter Plan of Treatment Not on file documented as of this encounter Visit Diagnoses Diagnosis Benign essential hypertension- Primary Essential hypertension, benign Hypercholesterolemia Pure hypercholesterolemia Prediabetes Other abnormal glucose Chronic pain of left knee documented in this encounter Additional Health Concerns Assessment Noted Time PHQ-9 Depression Total Score: 2 11/27/19 25 10:04 AM EST documented as of this encounter Care Teams Sample Distributor Relationship Specialty Start Date End Date Brigette Moody MD [address] [place] [id number] PCP - General Family Medicine 11/05/15 documented as of this encounter
--- OUTSIDE RECORDS SUMMARY | 2024-12-21 07:49 | XMS_ITS | Encounter Summary ---
Author Organization [employer] Address [address] [place] [address] [address] [place] [address] Care Team Providers Care Chronograph Operator Name Role Phone Brigette Moody MD Primary Care Provider [phone] Encounter Details Date Type Department Care Team ([facility] st Contact Info) Description 03/18/2023 Orders Only [facility]EDS [address] [place] [address] Brigette Moody MD [address] [place] [address] Social History Tobacco Use Types Packs/Day Years Used Date Smoking Tobacco: Never Passive Smoke Exposure: Never Smokeless Tobacco: Never Alcohol Use Standard Drinks/Week Comments Yes 1 (1 standard drink = 0.6 oz pur e alcohol) Depression Answer Date Recorded Patient Health Questionnaire-9 Score 0 10/27/2022 Depression Answer Date Recorded Patient Health Questionnaire-2 Score 0 10/27/2022 Sex and Gender Information Value Date Recorded Sex Assigned at Male 08/23/2022 10:17 AM EDT Legal Sex Male 10:17 AM EDT Gender Identity Male 08/23/2022 10:17 AM EDT Sexual Orientation Straight 08/23/2022 10 :17 AM EDT COVID-19 Exposure Response Date Recorded In the last 10 days, have yo u been in contact with someone who was confirmed or suspected to have Coronavirus/COVID-19? No / Unsure 03/17/2023 8:54 AM EDT documented as of this encounter Plan of Treatment Not on file documented as of this encounter Visit Diagnoses Not on filedocumented in this encounter Additional Health Concerns Assessment Noted Time PHQ-9 Depression Total Score: 0 01/04/20 23 10:14 AM EST documented as of this encounter Care Teams Chronograph Operator Relationship Specialty Start Date End Date Brigette Moody MD [address] [place] [address] PCP - General Family Medicine 11/05/15 documented as of this encounter
--- OUTSIDE RECORDS SUMMARY | 2024-12-21 07:49 | XMS_ITS | Encounter Summary ---
Author Organization [employer] Address [address] [facility] 7t [place] [address] Care Team Providers Care Associate Professor Of Literacy Name Role Phone Brigette Moody MD Primary Care Provider [phone] Encounter Details Date Type Department Care Team (Latest Contact Info) Description 12/11/2024 Travel Social History Tobacco Use Types Packs/Day [...] documented as of this encounter Care Teams Associate Professor Of Literacy Relationship Specialty Start Date End Date Brigette Moody MD [address] [place] [address] PCP - General Family Medicine 11/05/15 documented as of this encounter
[2024-12-21 08:15] VITALS: BP 144/96; PULSE 60; O2SAT 97; BMI 30.3
--- NOTE | 2024-12-21 08:15 | MHC.OFFVIS ---
Vital Signs 12/21/24 08:15 Height 5 ft 11 in Weight 216 lb 14.958 oz BMI 30.3 BP 144/96 H Blood Pressure Location Rt brachial Position Sitting Pulse 60 Pulse Source Pulse Oximeter Pulse Oximetry (%) 97 Oxygen Delivery Method Room Air Intake Visit Reasons: Follow Up Lizzie RICHARDS pt Intake Note: ESTABLISHED PATIENT for GERD mgmt. Re-est (MICAH PT). Chief Complaint; C/O consistent reflux and epigastric pain. Pt verifies that he is still taking pantoprazole every morning w/o significant relief. Pt also states that regardless of what he seems to eat, it causes reflux. Pt is actively avoiding trigger foods. Field Irrigation Worker Required: Yes Field Irrigation Worker Services: Field Irrigation Worker Present Field Irrigation Worker Name: Jolanta [id number] Nuria [id number] Information Interpreted: clinical only Accompanied by: Self / Same As Patient Allergies acetaminophen [From Percocet] Allergy (Verified 12/21/24 08:16) Dizziness oxycodone [From Percocet] Allergy (Verified 12/21/24 08:16) Dizziness HPI HPI Follow Up GERD, Lizzie Santana pt: Details: LAST VISIT: 58-year-old male chronic right upper quadrant pain reviewed ultrasound and CT may likely be musculoskeletal d/c esomeprazole- begin- pantoprazole 40 mg-30 minutes empty stomach Food diary, try to identify culprits Review reflux precautions We reviewed ultrasound and CT-once again questions answered Will follow back in 1 month for progress TODAY'S VISIT: Patient is here today for requested visit. Patient was seen by Lakisha LEON in the past. Last colonoscopy in January of 2021, recommendation was to repeat colonoscopy in 5 years due to tubular adenoma. Patient is here today complaining of epigastric pain mainly at night time. Patient states that sometimes he takes 2nd dose of pantoprazole before bedtime to help with pain. Patient usually does not eat late at night, however he does have a snack milk and cookies before bedtime. Patient is drinking 2 % regular milk. Patient denies nausea or vomiting. Patient reports that he is not eating that is spicy or greasy. Patient has 1-2 bowel movements daily. He describes them as normal no diarrhea or constipation. Denies any mucus in his stools. Denies melena, hematochezia, unintentional weight loss or ribbon like stools. Patient reports epigastric pain at night time. His symptoms throughout the day are controlled with pantoprazole. Patient denies dyspepsia, dysphagia or odynophagia [facility] Medical History Arthritis Back pain History of traumatic head injury Migraines Depression Umbilical hernia Right sided abdominal pain Hypercholesteremia HTN (hypertension) Asthma GERD (gastroesophageal reflux disease) Surgical History History of cystoscopy Hx of prostatectomy Hx of appendectomy History of testicular surgery History of ear surgery Family History Father Heart problem Diabetes Asthma Mother HTN (hypertension) Heart problem Maternal Grandfather Stomach cancer Throat cancer Maternal Grandmother Stomach cancer Paternal Uncle Brain cancer Skin cancer Social History Household Members: None Alcohol intake: current Alcohol intake frequency: holidays/special occasions only Alcohol type: beer Patient Tobacco Use Status: Never used Tobacco Current occupational status: unemployed Review of Systems Const Denies weight gain and Denies weight loss ENT Reports no additional complaints, Denies dysphagia and Denies odynophagia Card Reports no additional complaints Resp Reports no additional complaints GI Reports abdominal pain (Epigastric), Denies belching, Denies melena, Reports bloating, Denies change in bowel habits, Denies dysphagia, Denies excessive flatus, Denies dyspepsia, Reports heartburn, Denies diarrhea, Denies loose stools, Denies nausea, Denies odynophagia and Denies vomiting Reports no additional complaints Musc Reports no additional complaints Neuro Reports no additional complaints Psych Reports no additional complaints Endo Reports no additional complaints Physical Exam Vital Signs: Last Vital Signs Pulse 60 12/21/24 08:15 BP 144/96 H 12/21/24 08:15 Pulse Ox 97 12/21/24 08:15 Oxygen Delivery Method Room Air 12/21/24 08:15 BMI result Body Mass Index 30.3 Const General: healthy appearing and no acute distress Nutritional Appearance: obese Orientation/consciousness: patient oriented x3 Resp Effort & Inspection: normal respiratory effort, able to speak in complete sentences, no tracheal deviation and symmetric chest movement Auscultation: clear to auscultation bilaterally Cardio Rate: regular rate GI Inspection: Yes normal to inspection, No distended and Yes obesity Palpation (GI): Soft to palpation, not firm, nontender and No hepatosplenomegaly present Auscultation: normal bowel sounds General: Yes no CVA tenderness Back/Spine/Pelvis Back: no CVA tenderness Skin General skin exam: elasticity normal, turgor normal and dry skin Neuro General: patient oriented x3 Psych Appearance: grossly normal Mental Status: mental status grossly normal Assessment & Plan Assessment & Plan (1) Abdominal pain: Code(s): R10.9 - Unspecified abdominal pain Category: Medical Qualifiers: Abdominal location: epigastric Qualified Code(s): R10.13 - Epigastric pain (2) NAFLD (nonalcoholic fatty liver disease): Code(s): K76.0 - Fatty (change of) liver, not elsewhere classified Category: Medical (3) H. pylori infection: Code(s): A04.8 - Other specified bacterial intestinal infections Category: Medical (4) Postprandial epigastric pain: Code(s): R10.13 - Epigastric pain Category: Medical (5) Right sided abdominal pain: Code(s): R10.9 - Unspecified abdominal pain Category: Medical (6) GERD (gastroesophageal reflux disease): Code(s): K21.9 - Gastro-esophageal reflux disease without esophagitis Category: Medical Qualifiers: Esophagitis presence: esophagitis presence not specified Qualified Code(s): K21.9 - Gastro-esophageal reflux disease without esophagitis Plan Patient will continue pantoprazole in the morning half an hour before breakfast. Avoid dietary triggers and late night snacking. Staying upright for minimum 3 hours after meals discussed with patient. Patient will try lactose free milk, avoid sweets late at night. Discussed with patient low FODMAP diet. Patient does admit to have occasional bloating after meals. List of food recommended as well as list of food to avoid given to patient. Patient will start taking famotidine at bedtime. Follow-up in 3 months, sooner on as needed basis. Patient is agreeable to this plan verbalizes understanding of instructions. He was given the opportunity to ask questions and all questions answered. Thank you for allowing me to participate in his care Medications: New famotidine (Pepcid) 20 mg PO BEDTIME 30 tabs 3RF K21.9 - Gastro-esophageal reflux disease without esophagitis Coding Level of Care Code Est Pt Level 4 (66836) Complex EM visit Add On G2211 Diagnoses Epigastric pain R10.13 Abdominal location: epigastric NAFLD (nonalcoholic fatty liver disease) K76.0 H. pylori infection A04.8 Postprandial epigastric pain R10.13 Right sided abdominal pain R10.9 Gastroesophageal reflux disease, unspecified whether esophagitis present K21.9 Esophagitis presence: esophagitis presence not specified Time Spent (min) 40 Comment 30 minutes spent with patient and additional 10 minutes spent reviewing his records
== END 2024-12-21 09:00 | disposition home or self-care (01) ==
PROVIDERS: PCP Student in an Organized Health Care Education/Training Program; Visit Provider Nurse Practitioner Family
DX: R10.13 Epigastric pain (principal); K76.0 Fatty (change of) liver, not elsewhere classified; A04.8 Other specified bacterial intestinal infections; R10.9 Unspecified abdominal pain; K21.9 Gastro-esophageal reflux disease without esophagitis
CPT/HCPCS: 99214; G2211

== ENCOUNTER → 2024-12-21 07:44 | Outpatient (BNVA) | payer OTHER, SELFPAY | PROVIDERS: PCP Student in an Organized Health Care Education/Training Program; Visit Provider Nurse Practitioner Family | DX: K21.9 Gastro-esophageal reflux disease without esophagitis (principal); R10.13 Epigastric pain; K76.0 Fatty (change of) liver, not elsewhere classified; A04.8 Other specified bacterial intestinal infections; Z79.899 Other long term (current) drug therapy | CPT/HCPCS: 99212 ==

== ENCOUNTER 2025-07-03 10:33 | Outpatient (REF) | payer OTHER, SELFPAY ==
--- OUTSIDE RECORDS SUMMARY | 2025-07-03 10:00 | XMS_ITS | Encounter Summary ---
Author Organization [employer] Address [address] [facility] 7t [place] [address] Care Team Providers Care Pin Inserter Regulator Name Role Phone Brigette Moody MD Primary Care Provider [phone] Reason for Visit * Reason Comments Hypertension Encounter Details Date Type Department Care Team ([facility] st Contact Info) Description 07/03/2025 10:00 AM EDT Office Visit [facility] MED & PEDS [address] [place] [address] Brigette Moody MD [address] [place] [address] Benign essential hypertension (Primary Dx); Prediabetes; Hypercholesterolemia Social History Tobacco Use Types Packs/Day Years [...] Sign Reading Time Taken Comments Blood Pressure 137/91 07/03/2025 10:09 AM EDT Pulse 69 07/03/2025 10:09 AM EDT Temperature 36.2 C (97.1 F) 07/03/2025 10:09 AM EDT Respiratory Rate 18 07/03/2025 10:09 AM EDT Oxygen Saturation - - Inhaled Oxygen Concentration - - Weight 95.7 kg (211 lb) 07/03/2025 10:09 AM EDT Height 175.9 cm (5' 9.25 ) 07/03/2025 10:09 AM E DT Body Mass Index 30.93 07/03/2025 10:09 AM EDT documented in this encounter Progress Notes * Brigette Moody MD - 07/03/2025 10:00 AM EDT Subjective Patient ID: Gilberto Harris is a 60 y.o. male who presents for Hypertension. Hypertension This is a chronic problem. The current episode started more than 1 year ago. The problem is unchanged. The problem is controlled. Pertinent negatives include no anxiety, blurred vision, chest pain, headaches, malaise/fatigue, neck pain, orthopnea, palpitations, peripheral edema, PND, shortness of breath or sweats. Review of Systems Constitutional: Negative. Negative for malaise/fatigue. Eyes: Negative for blurred vision. Respiratory: Negative. Negative for shortness of breath. Cardiovascular: Negative. Negative for chest pain, palpitations, orthopnea and PND. Gastrointestinal: Negative. Genitourinary: Negative. Musculoskeletal: Negative for neck pain. Neurological: Negative [...] for this visit: Benign essential hypertension Comments: Improving Maintain a low-sodium diet (less than 2 grams per day). Maintain a regular cardiovascular exercise program. Advised to maintain a low-fat, low-cholesterol diet. Counseled regarding importance of weight loss. Counseled re: potential co-morbidities including cardiovascular disease. Orders: - Basic Metabolic Panel; Future - Lipid Panel, Standard; Future - Hepatic Function Panel; Future Prediabetes Comments: Labs ordered today Advised Low sugar and Low carb diet. Counseled regarding self-monitoring of blood glucose. Counseled re: potential co-morbidities including cardiovascular disease. Counseled re: potential co-morbidities include neuropathy and retinopathy. Counseled re: potential co-morbidities include nephropathy. Orders: - Basic Metabolic Panel; Future - Lipid Panel, Standard; Future - Hepatic Function Panel; Future - Hemoglobin A1c; Future Hypercholesterolemia Advised to maintain a low-fat, low-cholesterol diet. - Basic Metabolic Panel; Future - Lipid Panel, Standard; Future - Hepatic Function Panel; Future documented in this encounter Plan of Treatment Scheduled Orders Name Type Priority Associated Diagnoses Orde r Schedule Basic Metabolic Panel Lab Routine Prediabetes Hypercholesterolemia Benign essential hypertension Expected: 07/03/2025 (Approximate), Expires: 07/03/2026 Lipid Panel, Standard Lab Routine Prediabetes Hypercholesterolemia Benign essential hypertension Expected: 07/03/2025 (Approximate), Expires: 07/03/2026 Hepatic Function Panel Lab Routine Prediabetes Hypercholesterolemia Benign essential hypertension Expected: 07/03/2025 (Approximate), Expires: 07/03/2026 Hemoglobin A1c Lab Routine Prediabetes Expected: 07/03/2025 (Approximate), Expires: 07/03/2026 documented as of this encounter Visit Diagnoses Diagnosis Benign essential hypertension- Primary Essential hypertension, benign Prediabetes Other abnormal glucose Hypercholesterolemia Pure hypercholesterolemia documented in this encounter Additional Health Concerns Assessment Noted Time PHQ-9 Depression Total Score: 2 11/27/19 25 10:04 AM EST documented as of this encounter Care Teams Pin Inserter Regulator Relationship Specialty Start Date End Date Brigette Moody MD [address] [place] [id number] PCP - General Family Medicine 11/05/15 documented as of this encounter
--- OUTSIDE RECORDS SUMMARY | 2025-07-03 13:08 | XMS_ITS | Clinical Summary ---
Author Organization [employer] Address [address] [facility] 7t [place] [address] Care Team Providers Care Combat Engineer Name Role Phone Brigette Moody MD Primary Care Provider [phone] Allergies No known active allergies Medications * [...] TWICE DAILY 60 tablet 1 3 Active meloxicam (Mobic) 7.5 MG tablet TAKE ONE TABLET TWICE DAILY 60 tablet 2 4 Active Symbicort 80-4.5 MCG/ACT inhalerIndication s:Moderate persistent asthma without complication INHALE TWO PUFFS TWICE DAILY. RINSE MOUTH AFTER USE 10.2 g 2 4 Active Aspirin Adult Low Strength 81 MG EC tablet TAKE ONE TABLET EVERY MORNING 30 tablet 11 5 Active Vitamin D, Ergocalciferol, 27849 units capsule TAKE ONE CAPSULE ONCE A WEEK 5 capsule 11 5 Active Diclofenac Sodium 1 % gel Apply bid to knees daily prn pain 100 g 3 5 Active atorvastatin (Lipitor) 80 MG tablet TAKE ONE TABLET EVERY DAY 30 tablet 11 5 Active tamsulosin (Flomax) 0.4 MG 24 hr capsuleIndication s:Benign essential hypertension TAKE ONE CAPSULE DAILY 30 MINUTES FOLLOWING THE SAME MEAL EACH DAY 30 capsule 11 5 Active Active Problems Problem Noted Date Diagnosed Date Insomnia 10/27/2022 GERD without esophagitis 10/27/2022 BPH (benign prostatic hyperplasia) 10/27/2022 Moderate persistent asthma without complication 10/27/2022 Benign essential hypertension 12/14/2019 Hypercholesterolemia 12/14/2019 Encounters Date Type Department Care Team Description 07/03/2025 10:00 AM EDT Office Visit [facility] MED & PEDS [address] [place] [address] Brigette Moody MD Benign essential hypertension (Primary Dx); Prediabetes; Hypercholesterolemia 07/03/2025 Travel 07/02/[address] [facility] P[facility] [address] [place] [address] Brigette Moody MD Chart Prep from Last 3 Months Immunizations Immunization Administration Dates Next Due Influenza injectable quadriv [...] 18 07/03/2025 10:09 AM EDT Oxygen Saturation 96% 02/26/2025 8:53 AM EDT Inhaled Oxygen Concentration - - Weight 95.7 kg (211 lb) 07/03/2025 10:09 AM EDT Height 175.9 cm (5' 9.25 ) 07/03/2025 10:09 AM E DT Body Mass Index 30.93 07/03/2025 10:09 AM EDT Plan of Treatment Health Maintenance Due Date Last Done Comments CT Colonography 1966 Dental Oral Exam 1966 Dental Prophylaxis 1966 Dental X-Ray: Bitewings 1966 Dental X-Ray: Full Mouth 1966 FIT DNA/Cologuard 1966 FIT 1966 FOBT 1966 Sigmoidoscopy 1966 Hepatitis B Vaccines (1 of 3 - 19+ 3-dose series) 1985 Pneumococcal Vaccine: 50+ Years (1 of 2 - PCV) 1985 Zoster Vaccines (1 of 2) 2016 Diabetes: Hemoglobin A1C 04/22/2022 04/22/2021 COVID-19 Vaccine (3 - season) 2025 09/10/2021, 01/20/2021 Influenza Vaccine (#1) 2025 , 07/29/2021, 09/04/2020, Additional history exists Depression Screening 11/27/2025 11/27/2024, 11/27/19 SDOH Screening 11/27/2025 11/27/2024 Colonoscopy 01/24/2026 01/24/2021 Colorectal Cancer Screening 01/24/2026 Alcohol/Substance Use Screening 07/03/2026 07/03/2025 Disability Screening 07/03/2026 07/03/2025 Tobacco Screening 07/03/2026 07/03/2025 Lipid Panel 01/16/2029 01/17/2024, 02/22, 10/28/2022, Additional [...] age to complete this topic Meningococcal B Vaccine Aged Out No l onger eligible based on patient's age to complete [...] Procedure Name Priority Date/Time Associated Diagnosis Comments LIPID PANEL, STANDARD Routine 01/17/2024 10:18 AM EDT Hypercholesterolemi a HEPATITIS PANEL, GENERAL Routine 03/17/2023 9:48 AM EDT Immunization overdue HIV 1 RNA, QN PCR W/RFL YESSICA (RTI,PI,INTEGRASE) Routine 03/17/2023 9:48 AM EDT Immunization overdue ZZZ HISTORICAL HEMOGLOBIN A1C Routine 04/22/2021 9:25 AM EDT HM COLONOSCOPY Routine 01/24/2021 from Last 3 Months or Most Recently Relevant to Health Maintenance Results * (ABNORMAL) Lipid Panel, Standard (01/17/2024 10:18 AM EDT) Triglycerides 297(H) <150 mg/dL [facility] Comment:Desirable Triglyceri de: less than 150 mg/dLBorderline High Triglyceride 150-199 mg/dLHigh Triglyceride: 200-499 mg/dLVery High Triglyceride: greater than or equal to 5OO mg/dL Cholesterol 173 <200 mg/dL [facility] Comment:Desirable Cholestero l: less than 200 mg/dLBorderline High Cholesterol: 200-239 mg/dLHigh Cholesterol: greater than 239 mg/dL LDL Cholesterol Calculated 77 <100 mg/dL [facility] Comment:Desirable LDL: less than 100 mg/dLNear Optimal/Above Optimal LDL: 110- 129 mg/dLBorderline High LDL: 130-159 mg/dLHigh LDL: 160-189 mg/dLVery High LDL: greater than or equal to 190 mg/dL HDL Cholesterol 37(L) >40 mg/dL [facility] Comment:Desirable HDL: great er than 40 mg/dL Note: This HDL assay may give artificially low results in patients with liver disease. Blood Venous blood specimen / Unknown 01/17/2024 10:18 AM EDT 01/17/2024 2:12 PM EDT Result [facility] Brigette Moody MD LAB BLOOD ORDERABLES Final Resul t [facility] [address] [place] [phone] [phone] * HIV-1 RNA, Quantitative, Real-Time PCR with Reflex to Genotype (RTI, PI, Integrase) (03/17/2023 9:48 AM EDT) HIV 1 RNA, QN PCR NOT DETECTED copies/mL [facility], HIV 1 RNA, QN PCR NOT DETECTED Log copies/mL [facility], Comment: REFERENCE RANGE: NOT DETECTED copies/mL NOT DETECTED Log copies/mL This test was performed using Real-Time Polymerase Chain Reaction. Reportable range is 20 to 10,000,000 copies/mL (1.30-7.00 Log copies/mL). 03/17/2023 9:48 AM EDT 03/17/2023 9:49 AM EDT Narrative [facility] - 03/21/2023 12:29 AM EDT FASTING:YES FASTING: YES Result [facility] Brigette Moody MD LAB BLOOD ORDERABLES Final Resul t Performing Organization Address City/[facility]/ZIP Co de Phone Number [facility] [address], [place] [address] [facility]/[place] [facility], [address] [place] [address] * Hepatitis Panel, General (03/17/2023 9:48 AM EDT) Hepatitis A Antibody Total NON-REACT TROY NON-REACT TROY [facility] Comment: For additional information, please refer to http://education.Ducksboard.LiveTop/faq/BEM072 (This link is being provided for informational/ educational purposes only.) Hepatitis B Surface Antibody QL NON-REACT TROY NON-REACT TROY [facility] [place] [facility] Hepatitis B Surface Ag NON-REACT TROY NON-REACT TROY [facility] [place] [facility] Hepatitis B Core Antibody Total NON-REACT TROY NON-REACT TROY [facility] Hep[facility] C Antibody NON-REACT TROY NON-REACT TROY [facility] [place] [facility] Index 0.11 <1.00 [facility] [place] [facility] Comment: HCV antibody was non-reactive. There is no laboratory evidence of HCV infection. In most cases, no further action is required. However, if recent HCV exposure is suspected, a test for HCV RNA (test code 26494) is suggested. For additional information please refer to http://education.Voice123/faq/XQY81k2 (This link is being provided for informational/ educational purposes only.) 03/17/2023 9:48 AM EDT 03/17/2023 9:49 AM EDT Narrative [facility] - 03/21/2023 12:29 AM EDT FASTING:YES FASTING: YES Brigette Moody MD LAB BLOOD ORDERABLES Final Resul t [facility] [address], [place] [address] [facility] [place] [facility] [address] [place] [address] * HEMOGLOBIN A1C (04/22/2021 9:25 AM EDT) Pathologist [facility] Estimated Average Glucose 103 mg/dL [facility] Comment: eAG = Estimated average glucose which is %A1C expressed as average glucose, using the formula of the [id number] Average Glucose study (ADAG), Diabetes Care, Vol.31,#8, 2007 Hemoglobin A1c % 5.2 % FOU [facility] Comment: Hemoglobin A1C Reference Range Adults: 4.8 - 6.0 % Non diabetic: < 6.0 % Goal: < 7.0 % Additional Action Suggested: > 8.0 % Note: Hemoglobin A1c results are invalid for patients with abnormal amounts of HbF. Blood transfusions may impact the HbA1c concentration in the patient sample. 04/22/2021 9:25 AM EDT us Historical Provider HISTORICAL/NON ORDERABLE LABS Final Result [facility] [address] [place] [id number], * Colonoscopy (01/24/2021) Colonoscopy Normal Normal us Historical Provider HEALTH MAINTENANCE Final Result from Last 3 Months or Most Recently Relevant to Health Maintenance Insurance [facility] < [address] [place] [id number] Care Teams Combat Engineer Relationship Specialty Start Date End Date Brigette Moody MD [address] [place] [phone] PCP - General Family Medicine 11/05/15
--- OUTSIDE RECORDS SUMMARY | 2025-07-03 13:08 | XMS_ITS | Encounter Summary ---
Author Organization [employer] Address [address] [facility] [address] [place] [address] Care Team Providers Care Ruling Machine Operator Name Role Phone Brigette Moody MD Primary Care Provider [phone] Encounter Details Date Type Department Care Team (Latest Contact Info) Description 07/03/2025 Travel Social History Tobacco Use Types Packs/Day [...] documented as of this encounter Care Teams Ruling Machine Operator Relationship Specialty Start Date End Date Brigette Moody MD [address] [place] [address] PCP - General Family Medicine 11/05/15 documented as of this encounter
--- OUTSIDE RECORDS SUMMARY | 2025-07-03 13:08 | XMS_ITS | Encounter Summary ---
Author Organization [employer] Address [address] [facility] [address] [place] [address] Care Team Providers Care Construction Equipment Overhauler Name Role Phone Brigette Moody MD Primary Care Provider [phone] Encounter Details Date Type Department Care Team ([facility] st Contact Info) Description 2025 Orders Only [facility] MED & PEDS [address] [place], [place] [phone] Brigette Moody MD [address] [place] [address] Social History Tobacco Use Types Packs/Day Years [...] documented as of this encounter Care Teams Construction Equipment Overhauler Relationship Specialty Start Date End Date Brigette Moody MD [address] [place] [phone] PCP - General Family Medicine 11/05/15 documented as of this encounter
--- OUTSIDE RECORDS SUMMARY | 2025-07-03 13:08 | XMS_ITS | Encounter Summary ---
Author Organization [employer] Address [address] [facility] 7[address] [place] [address] Care Team Providers Care Registered Dietitian Name Role Phone Brigette Moody MD Primary Care Provider [phone] Reason for Visit * Reason Onset Date Comments Chart Prep 07/02/2025 Encounter Details Date Type Department Care Team ([facility] st Contact Info) Description 07/02/2025 Telephone [facility] MED & PEDS [address] [place] [address] Brigette Moody MD [address] [place] [address] Chart Prep Social History Tobacco Use Types Packs/Day [...] encounter Miscellaneous Notes * Telephone Encounter - Shanta Lal MA - 07/02/2025 1:28 PM EDT Chart Prep Labs: done Images: not done Referrals: not applicable Vaccines due: PCV20, Hep B, and Zoster Screenings: not applicable Overdue care gaps: A1c, Glucose, SBIRT, Disability screen, and Tobacco documented in this encounter Plan of Treatment Not on file documented as of this encounter Visit Diagnoses Not on filedocumented in this encounter Additional Health Concerns Assessment Noted Time PHQ-9 Depression Total Score: 2 11/27/19 25 10:04 AM EST documented as of this encounter Care Teams Registered Dietitian Relationship Specialty Start Date End Date Brigette Moody MD [address] [place] [id number] PCP - General Family Medicine 11/05/15 documented as of this encounter
--- OUTSIDE RECORDS SUMMARY | 2025-07-03 13:08 | XMS_ITS | Encounter Summary ---
Author Organization [employer] Address [address] [place] [address] Care Team Providers Care Wharfmaster Name Role Phone Brigette Moody MD Primary Care Provider [phone] Encounter Details Date Type Department Care Team ([facility] st Contact Info) Description 03/18/2023 Orders Only [facility] [address] [place], [place] [phone] Brigette Moody MD [address] [place] [address] Social History Tobacco Use Types Packs/Day Years [...] Noted Time PHQ-9 Depression Total Score: 0 10/27/19 23 10:14 AM EST documented as of this encounter Care Teams Wharfmaster Relationship Specialty Start Date End Date Brgiette Moody MD [address] [place] [address] PCP - General Family Medicine 11/05/15 documented as of this encounter
[2025-07-03 15:04] LABS: Alanine Aminotransferase 47 U/L (0-40); Albumin Level 4.3 g/dL (3.5-5.0); Alkaline Phosphatase 80 U/L (39-117); Anion Gap 11 (12-20); Aspartate Amino Transferase 55 U/L (5-37); Blood Urea Nitrogen 14 mg/dL (9-16); Calcium 9.0 mg/dL (8.4-10.2); Carbon Dioxide 28 mmol/L (22-29); Chloride 108 mmol/L (96-108); Cholesterol 199 mg/dL (<200); Estimated Glomerular Filt Rate > 60; HDL Cholesterol 45 mg/dL (>40); Potassium 4.5 mmol/L (3.3-5.1); Sodium 142 mmol/L (135-145); Total Protein 7.2 g/dL (6.5-8.0); Triglycerides 128 mg/dL (<150)
[2025-07-03 15:05] LABS: Hemoglobin A1C 121.1975 umol/L; Total Hemoglobin (HGBA1C) 3551.2532 umol/L
== END 2025-07-03 10:34 | disposition home or self-care (01) ==
LOC: HO.CHCLDS 10:33
PROVIDERS: Visit Provider Student in an Organized Health Care Education/Training Program
DX: R73.03 Prediabetes (principal); E78.00 Pure hypercholesterolemia, unspecified; I10 Essential (primary) hypertension
CPT/HCPCS: 36415; 80048; 80061; 80076; 83036